=== PATIENT | male | born 1955 | race Caucasian/White ===

== ENCOUNTER 2024-07-25 11:39 | Inpatient (IN) | payer MEDICARE, SELFPAY ==
[2024-07-25] VITALS (12 sets, daily range): BP systolic 132–204; BP diastolic 75–102; PULSE 62–84; RESP 16–20; TEMP 36.4–37.2; O2SAT 93–100; BMI 20.9
--- NOTE | ~2024-07-25 | XR_ITS ---
EXAMINATION: XR chest 1V portable 07/25/2024 11:59 INDICATION: Chest pain PROCEDURE: AP portable chest COMPARISON: No prior studies for comparison. FINDINGS: Heart size normal. No focal pneumonia, edema, pleural effusion or pneumothorax. Left basila r atelectasis. IMPRESSION: 1: NO ACUTE CARDIOPULMONARY DISEASE. Reviewed, dictated and finalized at location A.
--- NOTE | ~2024-07-25 | CT_ITS ---
EXAMINATION: CTA chest abdomen pelvis DATE: 07/25/2024 12:49 CDT INDICATION: Hypertension. Nausea. TECHNIQUE: Computed tomographic angiography (CTA) of the chest, abdomen, and pelvis was performed wit hout and with 100 mL Omnipaque-350 intravenous contrast. The dose-length product was 375.21 mGy-cm. M aximum intensity projection 3D-reconstructions of the aorta and other arteries were constructed by th e technologist on a separate workstation. Automated exposure control and iterative reconstruction debby hnique were employed. COMPARISON: Chest dated 07/25/2024 FINDINGS: CHEST CTA: No evidence for aortic aneurysm or dissection. Heart size normal. There is left atrial enlargement wi th left ventricular hypertrophy. No significant pleural or pericardial effusion. No endobronchial les ions. There are a few patchy areas of groundglass opacification. There is interlobular septal thicken ing. ABDOMEN AND PELVIS CTA: No evidence for aneurysm or dissection. Enlarged prostate gland. The liver, spleen, pancreas, adrenal glands are unremarkable. There is mild-moderate left hydronephrosis. Enlarged prostate gland. Mild b ladder wall thickening. No lymphadenopathy. Gallbladder is present. Nonobstructive bowel gas pattern. Mild thoracic spondylosis. IMPRESSION: 1. No significant vascular abnormality. 2: Mild-moderate left hydronephrosis. No obstructing stone or mass identified. 3: Enlarged prostate gland. Mild bladder wall thickening which may be due to outlet obstruction or l ess likely cystitis. 4.: Interlobular septal thickening with patchy groundglass opacities which may reflect chronic inters titial lung disease, small airway disease or less likely pneumonia. Reviewed, dictated and finalized at location A. IMPRESSION: 1. No significant vascular abnormality. 2: Mild-moderate left hydronephrosis. No obstructing stone or mass identified. 3: Enlarged prostate gland. Mild bladder wall thickening which may be due to o utlet obstruction or less likely cystitis. 4.: Interlobular septal thickening with patchy groundglass opacities which may reflect chronic interstitial lung disease, small airway disease or less likely pneumonia.
--- NOTE | 2024-07-25 11:45 | ECG_ITS ---
Test Date: 2024-07-25 11:43:30 Measurements Intervals [place] Rate: 76 P: 39 MA: 163 QRS: -1 QRSD: 88 T: 164 QT: 450 QTc: 508 Interpretive Statements SINUS RHYTHM WITH SINUS ARRHYTHMIA ST DEVIATION AND MARKED T-WAVE ABNORMALITY, CONSIDER ANTEROLATERAL ISCHEMIA [-0.5+ mV T-WAVE IN I/aVL/V3-V6] No previous ECG available for comparison Electronically Signed On 07-27-2024 14:05:06 CDT by Seferino Ro M.D.
--- OUTSIDE RECORDS SUMMARY | 2024-07-25 11:47 | XMS_ITS | Continuity of Care Document ---
Author Organization [facility] Address [address] [place] [address] Phone Care Team Providers Care Entry Level Sales Consultant Name Role Phone Sanchez Brothers MD Unavailable Unavailable Allergies, Adverse Reactions, Alerts Substance Reaction Status Criticality No Known Allergies Active No Inform ation Medications Medication Instructions Dosage Effective Dates (start - stop) Status Comments Keflex 500 mg capsule take 1 capsule (500MG) by oral route 3 times a day for 7 days - Active Bactroban 2 % topical ointment Apply a small amount to each nostril on clean Qtips BID starting 5 days prior to surgery - Active warfarin 3 mg tablet - Active COREG (unknown strength) Not Available - Active LEVEMIR (unknown strength) Not Available - Active NOVOLOG (unknown strength) inject by subcutaneous route per prescriber's instructions. Insulin dosing requires individualization. Not Available - Active PROZAC (unknown strength) Not Available - Active Procedures Procedure Date POSTOP FOLLOW-UP VISIT POSTOP FOLLOW-UP VISIT POSTOP FOLLOW-UP VISIT POSTOP FOLLOW-UP VISIT ARTHROTOMY , KNEE, W/ EXPLORE, DRAIN, RE MOVE LOOSE/FOREIGN BODY POSTOP FOLLOW-UP VISIT XRAY KNEE, 3 VIEWS CR POSTOP FOLLOW-UP VISIT Office Visit, No Charge POSTOP FOLLOW-UP VISIT KNEE IMMOBOLIZER TOTAL KNEE ARTHROPLASTY OFFICE/OUTPATIENT VISIT, EST XRAY KNEE, 4+ VIEWS OFFICE/OUTPATIENT VISIT, EST XRAY KNEE, 1-2 VIEWS OFFICE/OUTPATIENT VISIT, EST XRAY KNEE, 1-2 VIEWS POSTOP FOLLOW-UP VISIT XRAY KNEE, 1-2 VIEWS POSTOP FOLLOW-UP VISIT XRAY KNEE, 1-2 VIEWS POSTOP FOLLOW-UP VISIT Tibial Fx, Prox Plateau, OpT x Unicondylar, Inc Internal Fixation When Performed OPEN MENISCECTOMY, KNEE, MEDIAL OR LATER AL (ARTHROTOMY) OFFICE/OUTPATIENT VISIT, EST OFFICE/OUTPATIENT VISIT, NEW POSTOP FOLLOW-UP VISIT X-RAY EXAM OF KNEE, 3 POSTOP FOLLOW-UP VISIT TOTAL KNEE ARTHROPLASTY Perio tremayne qual act perform OFFICE/OUTPATIENT VISIT, EST X-RAY EXAM, KNEE, 4 OR MORE Advance Directives Directive Yes / No Effective Date File Name No Information Encounters Encounter Description Practice Location Reason(s) For Visit Diagnoses Date Provider Providers Copied on Encounter [facility], [address] [place] [address], [address], [place] tel:[phone] [facility] post-op right knee (chief complaint) Body mass index (BMI) 27.0-27.9, adultInfectio n of total right knee replacement, subsequent encounter 201 8 Deneen Bradford. [address] [place] [address], [id number], [place]. tel:[phone] Referring Provider: Heavenly Pak, [address] [place], [address] . tel:[phone] [facility], [address] [place] [address], [address], [place] tel:[phone] [facility] post-op right knee (chief complaint) Body mass index (BMI) 27.0-27.9, adultInfectio n of total right knee replacement, subsequent encounter 8 Deneen Bradford. [address] [place], [place], [id number], [place]. tel:[phone] Referring Provider: Heavenly Pak [address] [place], [address] . tel:[phone] [facility], [address] [place] [address], [address], [place] tel:[phone] [facility] post-op right knee (chief complaint) Infection of total right knee replacement, subsequent encounterPres ence of right artificial knee joint 8 Georgiana Johnson. [address] [place], [place], [id number], [place]. tel:[phone] Referring Provider: Heavenly Pak [address] [place], [address] . tel:[phone] [facility], [address] [place] [address], [address], [place] tel:[phone] [facility] post-op right knee (chief complaint) Body mass index (BMI) 27.0-27.9, adultInfect/i nflm reaction due to internal r knee prosth, init 8 Deneen Bradford. [address] [place], [place], [id number], [place]. tel:[phone] Referring Provider: Heavenly Pak [address] [place], [address] . tel:[phone] [facility], [address] [place] [address], [address], [place] tel:[phone] [facility] [place] No Information 0 8 Deneen Bradford. [address] [place], [place], [id number], [place]. tel:[phone] Referring Provider: Heavenly Pak [address] [place], [address] . tel:[phone] [facility], [address] [place] [address], [address], [place] tel:[phone] [facility] post-op right knee (chief complaint) post-op right knee (chief complaint) Aftercare following right knee joint replacement surgeryPresen ce of right artificial knee joint Feb-0 8 Deneen Bradford. [address] [place], [place], [id number], [place]. tel:[phone] [facility], [address] [place] [address], [address], [place] tel:[phone] [facility] post-op right knee (chief complaint) Aftercare following right knee joint replacement surgeryPresen ce of right artificial knee joint Feb-0 - 8 Deneen Bradford. [address] [place], [place], [id number], [place]. tel:[phone] [facility], [address] [place] [address], [address], [place] tel:[phone] [facility] post-op right knee (chief complaint) Aftercare following right knee joint replacement surgeryPresen ce of right artificial knee jointBody mass index (BMI) 27.0-27.9, adult 8 Deneen Bradford. [address] [place], [place], [id number], [place]. tel:[phone] [facility], [address] [place] [address], [address], [place] tel:[phone] [facility] post-op right knee (chief complaint) Aftercare following right knee joint replacement surgeryPresen ce of right artificial knee joint 8 Deneen Bradford. [address] [place], [place], [id number], [place]. tel:[phone] [facility], [address] [place] [address], [address], [place] tel:[phone] [facility] No Information 8 Deneen Swain. [address], [address], [place], [place], [id number], [place]. tel:[phone] [facility], [address] [place] [address], [address], [place] tel:[phone] [facility] No Information 8 Deneen Bradford. [address] [place], [place], [id number], [place]. tel:[phone] [facility], [address] [place] [address], [address], [place] tel:[phone] [facility] No Information 8 Deneen Bradford. [address] [place], [place], [id number], [place]. 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 [address] [place], [place], [id number], [place]. tel:[phone] Referring Provider: Sanchez Cruz, [address] [place] [address] A, [place], [address] . tel:[phone] OFFICE/OUTPA TIENT VISIT, EST [facility], [address] [place] [address], [address], [place] tel:[phone] [facility] right knee pain (chief complaint) Acute pain of right knee 7 Rogelio Lopez. [address] [place] [address], [id number], [place]. tel:[phone] Referring Provider: Sanchez Cruz [address] [facility] [place], [address] . tel:[phone] OFFICE/OUTPA TIENT VISIT, EST [facility], [address] [place], [address], [place] tel:[phone] [facility] right knee pain (chief complaint) Acute pain of right knee 9201 7 Rappe John. [address] [place], [place], [id number], [place]. tel:[phone] Referring Provider: Florencia Riddle [facility] [place] [facility] [address], [place], [address] . tel:[phone] [facility], [address] [place] [address], [address], [place] tel:[phone] [facility] post-op right knee (chief complaint) Closed displaced bicondylar fracture of right tibia with routine healing July- 8-201 7 Rappe John. [address] [place], [place], [id number], [place]. tel:[phone] Referring Provider: Florencia Riddle [facility] [place] [facility] [address], [place], [address] . tel:[phone] [facility], [address] [place] [address], [address], [place] tel:[phone] [facility] post-op right knee (chief complaint) Closed displaced bicondylar fracture of right tibia with routine healing May-2 7-201 7 Rappe John. [address] [place], [place], [id number], [place]. tel:[phone] Referring Provider: Shannan Riddle[address] [facility] [place] [facility] [address], [place], [address] . tel:[phone] [facility], [address] [place] [address], [address], [place] tel:[phone] [facility] post-op right knee (chief complaint) Closed displaced bicondylar fracture of right tibia with routine healing May-1 3-201 7 Rappe John. [address] [place], [place], [id number], [place]. tel:[phone] Referring Provider: Sanchez Cruz, Flore[address] [facility] [place] [facility] [address], [place], [address] . tel:[phone] [facility], [address] [place], [address], [place] tel:[phone] [facility] No Information 0 7 Rappe John. [address] [place], [place], [id number], [place]. tel:[phone] OFFICE/OUTPA TIENT VISIT, [facility], [address] [place], [address], [place] tel:[phone] [facility] right knee pain (chief complaint) Fracture of right tibial plateau, closed, initial encounterRigh t calf pain 0 7 Rappe John. [address] [place], [place], [id number], [place]. tel:[phone] Referring Provider: Florencia Riddle [facility] [place] [facility] [address], [place], [address] . tel:[phone] OFFICE/OUTPA TIENT VISIT, [facility], [address] [place], [address], [place] tel:[phone] [facility] right knee pain (chief complaint) Acute pain of right knee 7 Rappe John. [address] [place], [place], [id number], [place]. tel:[phone] Referring Provider: Florencia Riddle [facility] [address], [place], [address] . tel:[phone] [facility], [address] [place], [address], [place] tel:[phone] [facility] No Information 2 Deneen Bradford. [address] [place], [place], [id number], . tel:[phone] [facility], [address] [place] [address], [facility], tel:[phone] [facility] No Information 2 Deneen Bradford. [address] [place], [place], [id number], . tel:[phone] [facility], [address] [place] [address], [facility], tel:[phone] [facility] No Information 2 Deneen Bradford. [address] [place], [place], [address] [place] [address], . tel:[phone] OFFICE/OUTPA TIENT VISIT, [facility], [address] [place] [address], [facility], tel:[phone] [facility] No Information 2 Deneen Bradford. [address] [place], [place], [id number], . tel:[phone] Family History Family Member Type Diagnosis Age At Onset Problem (finding) Family history of strok e Problem (finding) Family history of Heart disease Problem (finding) Family history of Cance r, unknown Payers Payer name Insurance type Covered green party ID Tino hanley(s) [employer] Gold Choice Medicare MB [id number] Social History Type Description Quantity Date Captured Comments Alcohol Use Details No Caffeine Use Details Unknown Tobacco Use Status No Information Smoking Status Former smoker Non-Smoking Tobacco Use Details : No Details Available : No Details Available Sex Male Vital Signs Date / Time: Height Weight BMI Pulse Rate Blood Pressure Temperature Respiratory Rate Body Surface Area Head Circumference Head Circ. Percentile Wt./August. Percentile BMI percentile Pulse Ox Inhaled Ox 2:07 PM 71.00 in 90.718 kg (200.00 lbs) 27.8 9 kg/m lonnie (2) Chief Complaint And Reason For Visit From encounter dated '08/07/2017 14:00'. post-op right knee (chief complaint). Description: Activity level is: dependent. Status is: improving. Pain level is: 2/10. Pain frequency: occasional. No pain medications. WB status: full. Wound healing. No calf tenderness. No fever/chills. No rehabilitation. No nausea/vomiting. No swelling. Home exercise. Using assistive device. Device: quad cane. Reason For Referral Reason For Referral No Information Plan Of Treatment Date Type Action Status Goal Lifestyle education regardin g diet completed Goal Lifestyle education regardin g diet completed Goal Lifestyle education regardin g diet completed Goal Lifestyle education regardin g diet completed Referral Referred To: KNEE IMMOBOLIZER Ordered: Referrals: KNEE IMMOBOLIZER ordered Referral Ordered: UNILATERAL VENOUS DOPPLER (rule Out Dvt) RT lower leg Appointment date/timeframe: 05/17/2016 ordered Referral Ordered: CT LOWER EXTREMITY W/O DYE RT knee Appointment date/timeframe: 05/14/2016 ordered Referral Ordered: [employer] Document ordered Referral Ordered: [employer] Document ordered Referral Ordered: [employer] Document ordered History Of Present Illness Encounter Date Complaint History Of Prese nt Illness post-op right knee Activity leve l is: dependent. Status is: improving. Pain level is: 2/10. Pain frequency: occasional. No pain medications. WB status: full. Wound healing. No calf tenderness. No fever/chills. No rehabilitation. No nausea/vomiting. No swelling. Home exercise. Using assistive device. Device: quad cane. post-op right knee Activity leve l is: with assistance. Status is: improving. Pain level is: 5/10. Pain medications taken. Medication frequency: as needed. Wound healing. No calf tenderness. No fever/chills. Rehabilitation. No nausea/vomiting. No swelling. Home exercise. Using assistive device. Device: straight cane. post-op right knee Status is: im proving. Pain frequency: intermittent. Pain medications taken. WB status: partial. Wound healing. No calf tenderness. No fever/chills. Rehabilitation. No nausea/vomiting. Swelling. No home exercise. Using assistive device. Device: standard walker. Other: Well healed incision. Other: Well healed incision. post-op right knee Status is: un changed. Pain frequency: constant. Pain medications taken. Medication frequency: as prescribed. WB status: non-weight bearing. Wound not healing. Details: serous drainage, mild. No calf tenderness. No fever/chills. Rehabilitation. No nausea/vomiting. Swelling. No home exercise. Using assistive device. Other: Well healed incision. Other: Well healed incision. post-op right knee Status is: im proving. Pain level is: 6/10. Pain medications taken. Response: good. Medication frequency: less often than prescribed. WB status: full. Wound healing. No calf tenderness. No fever/chills. No rehabilitation. No nausea/vomiting. Swelling. No home exercise. Using assistive device. Device: standard walker. Other: Well healed incision. Other: Well healed incision. post-op right knee Activity sylvester l is: with assistance. Status is: improving. Pain level is: 2/10. Pain frequency: occasional. Pain medications taken. Medications: prescription pain medication. Medication frequency: as needed. WB status: full. Wound healing. No calf tenderness. No fever/chills. No rehabilitation. No nausea/vomiting. Swelling. No home exercise. Using assistive device. Device: brace/wheelchair. post-op right knee Activity sylvester l is: dependent. Work status is: no work/activity. Status is: improving. Pain level is: 5/10. Pain frequency: occasional. Pain medications taken. Medication frequency: as needed. WB status: full. Wound healing. No calf tenderness. No fever/chills. No rehabilitation. No nausea/vomiting. Swelling. Home exercise. Using assistive device. Device: rolling walker. Other: Well healed incision. post-op right knee Activity sylvester l is: with assistance. Pain frequency: occasional. Pain medications taken. Medications: prescription pain medication. WB status: full. Details: bloody. No calf tenderness. No fever/chills. Rehabilitation. No nausea/vomiting. No swelling. Home exercise. Using assistive device. Device: rolling walker. right knee pain Mr Michael Bell is a 61 year old male who complains of right knee pain. He presents with pain on the right side. He rates his current pain as 7/10. right knee pain Mr Michael Bell is a 61 year old male who complains of right knee pain. He presents with pain on the right side. right knee pain Mr Michael Bell is a 60 year old male who complains of right knee pain. He presents with pain on the right side. Patient is using a walker. He rates his current pain as 0/10. post-op right knee Activity leve l is: dependent. Status is: improving. Pain level is: 2/10. Pain medications taken. Medications: prescription pain medication. Medication frequency: as needed. WB status: partial. Wound healing. No calf tenderness. No fever/chills. Rehabilitation. No nausea/vomiting. No swelling. Home exercise. Using assistive device. Device: wheelchair. Other: Well healed incision. post-op right knee Activity leve l is: dependent. Status is: improving. Pain level is: 0/10. No pain medications. WB status: non-weight bearing. Wound healing. No calf tenderness. No fever/chills. No rehabilitation. No nausea/vomiting. Swelling. Home exercise. Using assistive device. Device: wheelchair. Other: Well healed incision. post-op right knee Activity leve l is: dependent. Work status is: no work/activity. Status is: unchanged. Pain level is: 10/10. Pain frequency: constant. Pain medications taken. Response: fair. Medication frequency: as needed. WB status: non-weight bearing. Wound healing. No calf tenderness. No fever/chills. No rehabilitation. No nausea/vomiting. Swelling. No home exercise. Using assistive device. Device: wheelchair. Other: Well healed incision. right knee pain Luciano Rodriguez Jr is a 60 year old male. He presents with pain on the right side. The symptoms occur intermittently. The problem is unchanged. Currently the patient states that the symptoms are mild. He rates his current pain as 3/10. The symptoms are aggravated by HE IS HERE FOR CT RESULT S. right knee pain Luciano Rodriguez Jr is a 60 year old male. He presents with pain on the right side. 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 The symptoms occur constantly. Currently the patient states that the symptoms are severe. The pain is described as aching and sharp. He rates his current pain as 10/10. The symptoms are aggravated by movement. In addition to right knee pain the patient is also experiencing pain. The patient has had a previous x-ray. Patient states he was seen at [facility] and they done x-rays there. Functional Status Date Functional Assessmen t No Information Instructions Date Instruction Additional Infor mation Lifestyle education regarding di et Related to Body mass index (BMI) 27.0-27.9, adult Discussed post op care/precautio ns Elevate as needed Follow exercise program Ice as needed Progress until full ROM Progress until full strength Advance activity as tolerated continue physical therapy Advance activity as tolerated Discussed wound care Discussed post op care/precautio ns Elevate as needed Follow exercise program Ice as needed Progress until full ROM Progress until full strength Lifestyle education regarding di et Related to Body mass index (BMI) 27.0-27.9, adult Limit activity Elevate as needed Elevate as needed Discussed post op care/precautio ns Discussed wound care observe Lifestyle education regarding di et Related to Body mass index (BMI) 27.0-27.9, adult Advance activity as tolerated Discussed wound care Discussed post op care/precautio ns Elevate as needed Follow exercise program Ice as needed Limit activity Progress until full ROM Progress until full strength schedule physical therapy Advance activity as tolerated Discussed wound care Discussed post op care/precautio ns Elevate as needed Follow exercise program Progress until full strength Ice as needed Progress until full ROM Lifestyle education regarding di et Related to Body mass index (BMI) 27.0-27.9, adult Advance activity as tolerated Ice as needed Progress until full ROM Progress until full strength continue physical therapy Discussed wound care Discussed post op care/precautio ns Elevate as needed Follow exercise program Discussed post op care/precautio ns Follow exercise program Progress until full ROM Progress until full strength Discussed wound care Discussed post op care/precautio ns Elevate as needed Follow exercise program Ice as needed Progress until full ROM Progress until full strength Progress until full strength Progress until full ROM Ice as needed Discussed wound care Discussed post op care/precautio ns Elevate as needed Follow exercise program Assessments Type Assessment Date assessment Body mass index (BMI) 27.0-27.9, adult assessment Infection of total r ight knee replacement, subsequent encounter Patient Care Teams Name Effective Dates (start - stop) Status Members No Information
--- OUTSIDE RECORDS SUMMARY | 2024-07-25 11:47 | XMS_ITS | Continuity of Care Document ---
Author Organization [facility] Address [address] [place] [address] Phone Care Team Providers Care Knockout Man Name Role Phone Kimberley Reno, Martin Unavailable Unavailable Advance Directives Directive Yes / No Effective Date File Name No Information Encounters Encounter Description Practice Location Reason(s) For Visit Diagnoses Date Provider Providers Copied on Encounter [facility], [address] [place], [id number] tel:[phone] No Information Kimberley Salazar. [address] [place], [address]. tel:[phone] Family History Family Member Type Diagnosis Age At Onset No Information Payers Payer name Insurance type Covered republican ID Authoriza tion(s) No Information Social History Type Description Quantity Date Captured Comments Sex Male Smoking Status No Information History Of Present Illness Encounter Date Complaint History Of Prese nt Illness No Information Functional Status Date Functional Assessmen t No Information Instructions Date Instruction Additional Infor mation No Information Assessments Type Assessment Date No Information Patient Care Teams Name Effective Dates (start - stop) Status Members No Information
[2024-07-25] MEDS: METOCLOPRAMIDE HCL INJ 10 MG/2 ML VIAL IM (11:58)
[2024-07-25] MEDS: fentaNYL CITRATE INJ (*CRX) 100 MCG/2 ML VIAL IV PUSH (11:58)
[2024-07-25] MEDS: LACTATED RINGERS 1,000 ML 999 ML IV CONT (11:58)
--- NOTE | 2024-07-25 12:00 | ED.CHESTPAIN ---
HPI - Chest Pain General Chief Complaint: Nausea/Vomiting/Diarrhea Stated Complaint: vomiting History of Present Illness HPI narrative: 68-year-old male presenting to the emergency department chief complaint of chest pain, abdominal pain, nausea, vomiting for 2 days. Patient is a terrible historian and EMS/family were not able to get any salient details. Patient states that he has had pain for 2 days and been retching with vomiting for 2 days and then this morning took 8 nitro tablets in 81 mg of aspirin for his chest pain. Reportedly he may have had a syncopal episode but no obvious trauma patient is not sure if this happened. His a history of prior stroke, bladder cancer, hep C, cardiac disease with 2 stents. When asked if he has chest pain or abdominal pain presently he states ?it's all right and then proceeds to grab his abdomen and chest in apparent pain and writhing. Denies any shortness a breath, back pain, fever, chills, trauma or injury. Patient is awake and answering questions and seems to be moving all extremities without any lateralizing deficits. Related Data Home Medications ?Medication ?Instructions ?Recorded ?Confirmed ?Last Taken ?Type amlodipine 10 mg tablet 10 mg PO ONCE 07/25/24 07/25/24 Unknown History aspirin 81 mg capsule 81 mg PO DAILY 07/25/24 07/25/24 Unknown History carvedilol 6.25 mg tablet 6.25 mg PO BID 07/25/24 07/25/24 Unknown History clotrimazole-betamethasone 1 1 applic topical BID 07/25/24 07/25/24 Unknown History %-0.05 % topical cream cyanocobalamin (vitamin B-12) 50 50 mcg PO DAILY 07/25/24 07/25/24 Unknown History mcg tablet (Vitamin B-12) duloxetine 30 mg capsule,delayed 30 mg PO BID 07/25/24 07/25/24 Unknown History release isosorbide mononitrate 30 mg 30 mg PO DAILY 07/25/24 07/25/24 Unknown History tablet,extended release 24 hr levetiracetam 500 mg tablet 500 mg PO BID 07/25/24 07/25/24 Unknown History losartan 25 mg tablet (Cozaar) 25 mg PO DAILY 07/25/24 07/25/24 Unknown History nitroglycerin PO 07/25/24 07/25/24 History pantoprazole 40 mg tablet,delayed 40 mg PO QAM 07/25/24 07/25/24 Unknown History release primidone 50 mg tablet 50 mg PO HS 07/25/24 07/25/24 Unknown History rosuvastatin 20 mg tablet 20 mg PO DAILY 07/25/24 07/25/24 Unknown History tamsulosin 0.4 mg capsule 0.4 mg PO DAILY 07/25/24 07/25/24 Unknown History umeclidinium 62.5 mcg-vilanterol 1 inh inhalation DAILY 07/25/24 07/25/24 Unknown History 25 mcg/actuation powdr for inhalation (Anoro Ellipta) Allergies Allergy/AdvReac Type Severity Reaction Status Date / Time No Known Allergies Allergy Verified 07/25/24 15:23 Review of Systems Review of Systems: As reviewed above in [facility] Social History Social History Smoking status: Former smoker Tobacco type: cigarettes Alcohol intake: former Substance use type: former substance user and marijuana Do You Feel Safe in your Home?: Yes Lack of Transportation: No Lack of Food: Never True Current Housing: I Have Housing Concerned About Future Housing: No Difficulty Paying Gas/Electric Bills: No Difficulty Paying for Meds: No Currently Unemployed: No Education: Never Attended/Kindergarten Only Difficulty w/ Childcare or Family Care: No Spiritual care concerns: No Exam Narrative: GENERAL: In acute distress, writhing, not able to sit still, clutching his chest and abdomen HEAD: [Normocephalic, atraumatic.] EYES: [PERRLA and EOMI.] ENT: Nares clear, no rhinorrhea or epistaxis. Mucous membranes moist. NECK: Supple. CHEST: [Clear to auscultation. No respiratory distress.] Tender in the anterior chest wall HEART: [Regular rate and rhythm]. No murmur heard. [Normal peripheral pulses.] ABDOMEN: [Soft, nondistended], tender in the epigastrium, [No rigidity or guarding] EXTREMITIES: Normal range of motion. [No edema.] SKIN: Warm, dry, no rash. NEURO: [No focal deficits]. Alert and oriented [x3.] Moving all extremities PSYCH: [Normal mood and affect.] Course Vital Signs Vital signs: Vital Signs Temperature 36.4 C 07/25/24 11:35 Pulse Rate 67 07/25/24 11:35 Respiratory Rate 20 07/25/24 11:35 Blood Pressure 204/102 H 07/25/24 11:35 Pulse Oximetry 100 07/25/24 11:35 Oxygen Delivery Room Air 07/25/24 11:35 Temperature 37.2 C 07/25/24 15:20 Pulse Rate 69 07/25/24 16:00 Respiratory Rate 18 07/25/24 15:20 Blood Pressure 155/78 H 07/25/24 15:20 Pulse Oximetry 98 07/25/24 15:20 Oxygen Delivery Room Air 07/25/24 16:00 MDM - Chest Pain MDM Narrative Medical decision making narrative: 68-year-old male with history of prior CVA, bladder cancer, coronary artery disease with 2 cardiac stents, hepatitis-C. Patient presents to the emergency department via EMS with nausea and vomiting for 2 days and chest pain today with a possible syncopal episode. Patient is a terrible historian and difficult to ascertain exactly what happened but he did take 8 tablets of nitroglycerin and 81 mg of aspirin today for chest pain, arrives in acute distress, writhing and not able to sit still clutching his chest and complaining of pain and retching and vomiting. He is markedly hypertensive with a blood pressure 204/102, no tachycardia, tachypnea, fever or hypoxia. He has a tender epigastrium in tender anterior chest wall no overlying skin changes. Moving all extremities without any focal lateralizing deficits or neurological symptoms. He is awake alert oriented. He appears rather uncomfortable not able to sit still for an IV. Intramuscular Reglan was administered an IV was established. EKG was obtained immediately and shows what appears to be deeply inverted symmetric T-waves in the lateral leads and biphasic T-waves in V2 and V3 consistent with a Wellens criteria and potentially critical stenosis. I immediately called and spoke to the on-call drier Dr. Taylor. We discussed patient's symptomatology, EKG and historical elements. At this point we are going to obtain a CT angiography of his chest abdomen pelvis to rule out any other causes such as aortic aneurysm or dissection, pseudoaneurysm or any other acute emergency and then patient will be needing a cardiac catheterization if this is unremarkable. Patient was provided 100 mcg of fentanyl for pain control, Reglan for nausea control and bedside chest x-ray was reviewed showing no acute cardiopulmonary process. CT was called and patient was taken emergently for CT angiography. I independently reviewed patient's CT angiography and did not show any signs of ascending dissection or aneurysm. CT read by radiology shows no acute vascular insults with her some, tear and moderate left-sided hydronephrosis but no stone or mass, enlarged prostate gland with bladder wall thickening with possible cystitis. In her level septal thickening consistent with chronic interstitial lung disease versus small airway disease versus less likely pneumonia. Chest x-ray shows no acute cardiopulmonary process. Patient's laboratory studies showed no leukocytosis, hemoglobin of 11.7 with no baseline to compare to. Normal platelet count. Electrolytes are unremarkable. Coagulation panel unremarkable. He does have a creatinine 1.43 which is unclear if his chronic kidney your new acute kidney injury. Troponin is largely elevated 0.462. I did speak once again to Interventional Cardiology who recommends initiation of a heparin infusion but after their evaluation the patient at bedside did not think he needs emergent cardiac catheterization will plan for medical laboratory scientist tomorrow morning unless he exhibits recurrence of his pain or other clinical decline. Patient on my re-evaluation is resting comfortably after the Reglan and fentanyl, no longer retching or nauseous and no longer having any pain. His vital signs did show improvement in his blood pressure 155/78 before any initiation of antihypertensive therapy so likely pain mediated on chronic hypertension. P.r.n. hydralazine was ordered. Heparin drip and bolus ordered. Spoke to the hospitalist team currently being covered by the midlevel provider Mikki who accepted the patient to the IMU for continued evaluation and treatment. Cardiology on consult and has already evaluated the patient. Medical Records Data Attestation: I reviewed the patient's medical records. Lab Data Attestation: I reviewed the patient's lab results. 07/25/24 15:25 07/25/24 12:59 Labs: Lab Results 07/25/24 Range/Units 12:59 WBC 8.7 (4.5-10.0) K/mm3 RBC 4.28 L (4.6-6.20) M/mm3 Hgb 11.7 L (14.0-18.0) g/dL Hct 37.2 L (42.0-52.0) % MCV 86.9 (80-100) fl MCH 27.3 (26-34) pg MCHC 31.5 L (32-36) g/dl RDW 18.2 H (11.5-14.5) % Plt Count 204 (150-375) k/mm3 MPV 10.4 (7.4-10.4) fl Immature Gran % (Auto) 0.3 (0-0.5) % Neut % (Auto) 76.3 H (45.5-73.1) % Lymph % (Auto) 12.7 L (18.3-44.2) % Karnes % (Auto) 9.2 H (2.6-8.5) % Eos % (Auto) 0.8 (0-4.4) % Baso % (Auto) 0.7 (0.2-1.2) % Lymph # (Auto) 1.11 (0.9-3.2) K/mm3 Karnes # (Auto) 0.8 H (0.1-0.6) K/mm3 Eos # (Auto) 0.1 (0-0.3) K/mm3 Baso # (Auto) 0.1 (0.0-0.1) K/mm3 Abs Immat Gran (auto) 0.03 (0.00-0.031) K/mm3 Absolute Neuts (auto) 6.7 (1.3-6.7) K/mm3 Absolute Nucleated RBC 0.000 (0.0-0.012) K/mm3 Nucleated RBC % 0.0 (0.0-0.2) % PT 14.0 (11.1-14.7) Seconds INR 1.0 APTT 30.6 (22.3-36.8) Seconds Sodium 134 L (137-145) mmol/L Potassium 3.5 (3.4-5.0) mmol/L Chloride 102 (98-107) mmol/L Carbon Dioxide 20 L (22-30) mmol/L Anion Gap 12 (4-12) mmol/L BUN 37 H (9-20) mg/dL Creatinine 1.42 H (0.7-1.3) mg/dL Estim Creat Clear Calc 43 ml/min Estimated GFR 49 L (59 - ) Glucose 107 (65-110) mg/dL Calcium 9.0 (8.4-10.2) mg/dL Total Bilirubin 1.1 (0.2-1.3) mg/dL AST 39 (17-59) U/L ALT 21 (6-50) U/L Alkaline Phosphatase 77 (38-126) U/L Troponin I 0.462 H* (0.000-0.034) ng/mL Total Protein 7.0 (6.3-8.2) g/dL Albumin 4.4 (3.5-5.1) g/dL Lipase 38 (23-300) U/L Imaging Data Attestation: I personally reviewed and interpreted this imaging study as follows: My impression: Impressions Chest X-Ray 07/25/24 12:02 IMPRESSION: 1: NO ACUTE CARDIOPULMONARY DISEASE. Chest/Abdomen/Pelvis CTA 07/25/24 12:49 IMPRESSION: 1. No significant vascular abnormality. 2: Mild-moderate left hydronephrosis. No obstructing stone or mass identified. 3: Enlarged prostate gland. Mild bladder wall thickening which may be due to outlet obstruction or less likely cystitis. 4.: Interlobular septal thickening with patchy groundglass opacities which may reflect chronic interstitial lung disease, small airway disease or less likely pneumonia. ECG Data EKG #1: Attestation: I personally reviewed and interpreted this ECG as follows: ECG completion date: 07/25/24 ECG completion time: 11:43 Prior ECG tracings: not available for review Interpretation: Regular rate of 76 beats per minute, regular axis, QTC 480, NC 163, QRS [address] segment elevations or depressions but there are symmetric deeply inverted T-waves in the lateral leads V4 V5 and V6 with biphasic T-waves in leads V2 and V3. Consistent with Wellens criteria. Final interpretation sinus rhythm with suspected anterolateral ischemic changes. Critical Care Time Critical Care Time Critical Care Time: Yes Total Critical Care Time: 75 Discharge Plan Discharge Clinical Impression: NSTEMI (non-ST elevated myocardial infarction), Chest pain, Hypertensive urgency, MARQUEZ (acute kidney injury) Patient Disposition: Still a Patient Condition: Stable
--- NOTE | 2024-07-25 12:48 | PM.CNCAR ---
Assessment and Plan Assessment and plan (1) Chest pain: Code(s): R07.9 - Chest pain, unspecified Status: Acute (2) Hypertensive urgency: Code(s): I16.0 - Hypertensive urgency Status: Acute Plan Problem list: Chest pain with EKG showing sinus rhythm, ST depressions, deep T-wave inversions in anterolateral leads suggestive of anterolateral ischemia Abdominal pain, nausea, emesis Hypertension-poorly controlled CAD status post 2 stents in the past History of bladder cancer History of CVA Plan: -deep T-wave inversions in the anterolateral leads are concerning for acute ischemia in the presence of chest pain; other differential diagnosis include LVH, LV aneurysm, CVA. However patient now has relief of chest pain and is resting after getting metoclopramide in the ER which suggest GI etiology could be likely. Will plan for further ischemic evaluation based on any change in patient's clinical symptoms, results of troponin, CTA chest, and echo -check troponins. If troponin is elevated, start heparin drip -r/o aortic dissection prior to starting any anticoagulation -obtain TTE to evaluate LVEF and any regional wall motion abnormalities -CTA to rule out aortic dissection, PE -aspirin 81 mg daily -atorvastatin 40 mg daily -check and replace electrolytes to keep K greater than 4 and Mg greater than 2 -patient is being admitted to IMU to hospitalist service. Workup for GI symptoms per primary team Our recommendations were discussed with ER physician. Cardiology will continue to follow History of Present Illness History of Present Illness Consult date/time: 07/25/24 12:48 Reason For Visit: vomiting Narrative: 68-year-old male with history of CAD status post 2 stents, bladder cancer, stroke, hepatitis-C presents with chief complaints of chest pain and emesis. Patient lives in his sister's house and is accompanied by her today. Patient's sister provides most of the history as patient is a poor historian. Patient has been having chest pain, epigastric pain, nausea, and emesis for 2 days. Per patient's sister he starts having chest pain/red change followed by emesis. This morning patient took 8 tablets of nitro and 81 mg of aspirin for chest pain with no relief of pain and this prompted him to present to the ER. Patient thinks he may have had a syncopal episode this morning but he is not sure. No obvious trauma. No shortness a breath, palpitations, dizziness, lightheadedness, orthopnea, PND, recent weight gain. EKG shows sinus rhythm with ST depressions, deep T-wave inversions in anterolateral leads. Cardiology is consulted for further recommendations. Workup: EKG: Sinus rhythm, ST depressions, marked T-wave inversions in anterolateral leads Chest x-ray: No acute cardiopulmonary disease CTA chest: No PE or aortic dissection he Review of Systems Cardiovascular: Comments: As mentioned in HPI Respiratory: Comments: As mentioned in the HPI Meds Home Medications and Allergies Allergies Allergy/AdvReac Type Severity Reaction Status Date / Time No Known Allergies Allergy Verified 07/25/24 11:50 Vital Signs Vital Signs - 24 hr 07/25/24 11:35 07/25/24 12:27 Temperature 36.4 C Pulse Rate 67 80 Respiratory Rate 20 19 Blood Pressure 204/102 H 189/91 H Pulse Oximetry 100 100 Oxygen Delivery Room Air Exam Narrative: General: Alert oriented x3, no acute distress Neck: Supple, no JVD Chest: Bilaterally clear to auscultation, no rales or rhonchi Cardiac: S1, S2 +, regular rate, regular rhythm, no murmurs or rubs Extremities: No pedal edema, no skin rash Neurologic: Alert and oriented x3, no focal neurological deficits Results Labs and Meds Lab results: Patient Weight 07/25/24 23:59 Weight 68.2 kg
[2024-07-25 13:07] LABS: Basophils Absolute Auto 0.1 K/mm3 (0.0-0.1); Basophils Percent Auto 0.7 % (0.2-1.2); Eosinophils Absolute Auto 0.1 K/mm3 (0-0.3); Eosinophils Percent Auto 0.8 % (0-4.4); Hematocrit 37.2 % (42.0-52.0); Hemoglobin 11.7 g/dL (14.0-18.0); Immature Granulocyte Absolute 0.03 K/mm3 (0.00-0.031); Immature Granulocyte Percent A 0.3 % (0-0.5); Lymphocytes Absolute Auto 1.11 K/mm3 (0.9-3.2); Lymphocytes Percent Auto 12.7 % (18.3-44.2); Mean Corpuscular HGB Conc 31.5 g/dl (32-36); Mean Corpuscular Hemoglobin 27.3 pg (26-34); Mean Corpuscular Volume 86.9 fl (80-100); Mean Platelet Volume 10.4 fl (7.4-10.4); Monocytes Absolute Auto 0.8 K/mm3 (0.1-0.6); Monocytes Percent Auto 9.2 % (2.6-8.5); Neutrophils Absolute Auto 6.7 K/mm3 (1.3-6.7); Neutrophils Percent Auto 76.3 % (45.5-73.1); Platelet Count Result 204 k/mm3 (150-375); Red Blood Count 4.28 M/mm3 (4.6-6.20); Red Cell Distribution Width 18.2 % (11.5-14.5); White Blood Count 8.7 K/mm3 (4.5-10.0)
[2024-07-25 13:22] LABS: Alanine Aminotransferase 21 U/L (6-50); Albumin Level 4.4 g/dL (3.5-5.1); Alkaline Phosphatase 77 U/L (38-126); Anion Gap 12 mmol/L (4-12); Aspartate Amino Transferase 39 U/L (17-59); Bilirubin,Total 1.1 mg/dL (0.2-1.3); Blood Urea Nitrogen 37 mg/dL (9-20); Carbon Dioxide 20 mmol/L (22-30); Chloride 102 mmol/L (98-107); Estimated CRCL calculation 43 ml/min; Estimated Glomerular Filt Rate 49; Glucose 107 mg/dL (65-110); Lipase 38 U/L (23-300); Potassium 3.5 mmol/L (3.4-5.0); Sodium 134 mmol/L (137-145)
[2024-07-25 13:23] LABS: Partial Thromboplastin Time 30.6 Seconds (22.3-36.8)
[2024-07-25 13:38] LABS: Troponin I 0.462 ng/mL (0.000-0.034)
[2024-07-25] MEDS: HEPARIN SOD/D5W 100 UNITS/ML 25,000 UNITS/250 ML BAG 8 UNITS IV CONT (14:13)
[2024-07-25] MEDS: HEPARIN SODIUM 5,000 UNITS/ML VIAL 4000 UNITS IV PUSH ×2 (14:14→20:55)
--- NOTE | 2024-07-25 14:47 | P.HP_ITS ---
H&P: HPI History of Present Illness Date/Time: 07/25/24 14:47 Chief Complaint: Chest pain Narrative: 68-year-old male presents the hospital with severe chest pain. Patient states that he took 9 nitro at home and believes he passed out. When he woke up he still had chest pain side presents to the hospital. Patient is of extremely poor historian with short-term memory issues due to strokes. HPI gathered from chart review. Current to the chart the patient had chest pain today and took 829 nitros for his chest pain with no relief, he states that he may pass out. When he woke up he still had chest pain so he presented to the hospital. According to the chart the patient also complained of nausea and vomiting and not eating for the last few days. Patient denies fevers chills. On bedside exam patient denies chest pain. Patient's lab work shows anemia 11.7, sodium of 134, carbon dioxide of 11, BUN of 37, creatinine of 1.42 unknown baseline, GFR 49, baseline troponin of 0.462. CT shows no acute findings with Enlarged prostate gland. Mild bladder wall thickening which may be due to outlet obstruction and Interlobular septal thickening with patchy groundglass opacities which may reflect chronic interstitial lung disease, small airway disease or less likely pneumonia. EKG shows sinus rhythm with sinus arrhythmia and abnormal T-waves. QTC 508. In the ED the patient was given aspirin and started on heparin drip and Cardiology was consulted, likely cardiac catheterization tomorrow morning. Review of Systems Review of Systems: 12 systems were reviewed and are negativ e except for as per HPI. [facility] Social History Social History Smoking status: Former smoker Tobacco type: cigarettes Alcohol intake: former Substance use type: former substance user and marijuana Do You Feel Safe in your Home?: Yes Lack of Transportation: No Lack of Food: Never True Current Housing: I Have Housing Concerned About Future Housing: No Difficulty Paying Gas/Electric Bills: No Difficulty Paying for Meds: No Currently Unemployed: No Education: Never Attended/Kindergarten Only Difficulty w/ Childcare or Family Care: No Spiritual care concerns: No Meds Home Medications and Allergies Home Medications ?Medication ?Instructions ?Recorded ?Confirmed ?Type amlodipine 10 mg tablet 10 mg PO ONCE 07/25/24 07/25/24 History aspirin 81 mg capsule 81 mg PO DAILY 07/25/24 07/25/24 History carvedilol 6.25 mg tablet 6.25 mg PO BID 07/25/24 07/25/24 History clotrimazole-betamethasone 1 1 applic topical BID 07/25/24 07/25/24 History %-0.05 % topical cream cyanocobalamin (vitamin B-12) 50 50 mcg PO DAILY 07/25/24 07/25/24 History mcg tablet (Vitamin B-12) duloxetine 30 mg capsule,delayed 30 mg PO BID 07/25/24 07/25/24 History release isosorbide mononitrate 30 mg 30 mg PO DAILY 07/25/24 07/25/24 History tablet,extended release 24 hr levetiracetam 500 mg tablet 500 mg PO BID 07/25/24 07/25/24 History losartan 25 mg tablet (Cozaar) 25 mg PO DAILY 07/25/24 07/25/24 History nitroglycerin 0.4 mg PO TID PRN chest pain 07/25/24 07/25/24 History pantoprazole 40 mg tablet,delayed 40 mg PO QAM 07/25/24 07/25/24 History release primidone 50 mg tablet 50 mg PO HS 07/25/24 07/25/24 History rosuvastatin 20 mg tablet 20 mg PO DAILY 07/25/24 07/25/24 History tamsulosin 0.4 mg capsule 0.4 mg PO DAILY 07/25/24 07/25/24 History umeclidinium 62.5 mcg-vilanterol 1 inh inhalation DAILY 07/25/24 07/25/24 History 25 mcg/actuation powdr for inhalation (Anoro Ellipta) Allergies Allergy/AdvReac Type Severity Reaction Status Date / Time No Known Allergies Allergy Verified 07/25/24 15:23 Vital Signs Vital Signs - 24 hr 07/25/24 11:35 07/25/24 12:27 07/25/24 12:45 Temperature 97.6 F Pulse Rate 67 80 78 Respiratory Rate 20 19 19 Blood Pressure 204/102 H 189/91 H 156/83 H Pulse Oximetry 100 100 94 Oxygen Delivery Room Air 07/25/24 13:30 07/25/24 14:00 Temperature Pulse Rate 62 78 Respiratory Rate 19 16 Blood Pressure 159/75 H 164/77 H Pulse Oximetry 97 97 Oxygen Delivery Exam Narrative: General: Older than stated a HEENT: normocephalic, atraumatic. Mucous membranes moist. EOMI, PERRLA, bilateral sclera anicteric, no conjunctival injection. Neck supple without JVD, lymphadenopathy, or bruit. Respiratory: Wheezing to ascultation bilaterally. Cardiovascular: Regular rate and rhythm, normal S1-S2 upon ascultation. No murmurs, rubs, or clicks. PMI is nondisplaced, capillary refill less than 3 second. Abdomen: Soft, round, no pulsatile masses, nondistended and nontender. No rebound, no guarding. No CVA tenderness, no hepatosplenomegaly. Bowel sounds present to all four quadrants. No high pitch or tinkling sounds, resonant to percussion. Extremities: No cyanosis, clubbing, or edema present. Pulses are palpable 2/2. Active ROM to all four extremities. Neuro: Alert and orientated x 4. PERRLA. Cranial nerves 2-12 intact without focal deficit. Skin: Warm, dry, and intact, without rash, erythema, or lesion. Psych: pleasant, cooperative, normal speech, normal affect, no hallucinations, no dysarthia H&P: Results Labs Labs: Short CBC 07/25/24 Range/Units 12:59 WBC 8.7 (4.5-10.0) K/mm3 Hgb 11.7 L (14.0-18.0) g/dL Hct 37.2 L (42.0-52.0) % Plt Count 204 (150-375) k/mm3 BMP 07/25/24 12:59 Sodium 134 L Potassium 3.5 Chloride 102 Carbon Dioxide 20 L BUN 37 H Creatinine 1.42 H Glucose 107 Calcium 9.0 Cardiac Enzymes 07/25/24 Range/Units 12:59 Troponin I 0.462 H* (0.000-0.034) ng/mL Liver Function 07/25/24 Range/Units 12:59 Total Bilirubin 1.1 (0.2-1.3) mg/dL AST 39 (17-59) U/L ALT 21 (6-50) U/L Alkaline Phosphatase 77 (38-126) U/L Albumin 4.4 (3.5-5.1) g/dL Assessment and Plan Assessment and plan (1) NSTEMI (non-ST elevated myocardial infarction): Code(s): I21.4 - Non-ST elevation (NSTEMI) myocardial infarction Status: Acute Assessment and Plan: Cardiology consulted Plan for laborer pipeline tomorrow Heparin per protocol Nitro for chest pain Echocardiogram pending (2) Hypertensive urgency: Code(s): I16.0 - Hypertensive urgency Status: Acute Assessment and Plan: Hydralazine p.r.n. Continue home antihypertensives (3) BPH (benign prostatic hyperplasia): Code(s): N40.0 - Benign prostatic hyperplasia without lower urinary tract symptoms Status: Acute Assessment and Plan: Bladder distension seen on CT Continue home Flomax Add Proscar (4) MARQUEZ (acute kidney injury): Code(s): N17.9 - Acute kidney failure, unspecified Status: Acute Assessment and Plan: Unknown baseline Repeat BMP in the morning (5) Vomiting: Code(s): R11.10 - Vomiting, unspecified Status: Acute Assessment and Plan: Prolonged QTC Avoid prolonging agents Tigan for nausea (6) Seizures: Code(s): R56.9 - Unspecified convulsions Status: Acute Assessment and Plan: Continue home Keppra and primidone Quality VTE Prophylaxis VTE prophylaxis: mechanical ordered and pharmacologic ordered Hospitalist MIPS Advance Care Plan I have confirmed that the patient's Advanced Care Plan is present, code status is documented, or surrogate decision maker is listed in patient medical record.: Yes Medication Reconciliation I have utilized all available resources to obtain, update and review the patients current medications (includes all prescriptions, OTC, herbals, cannabis, and nutritional supplements).: Yes
[2024-07-25 15:30] LABS: Basophils Percent Auto 0.3 % (0.2-1.2); Eosinophils Percent Auto 0.4 % (0-4.4); Hematocrit 39.4 % (42.0-52.0); Hemoglobin 12.5 g/dL (14.0-18.0); Immature Granulocyte Absolute 0.02 K/mm3 (0.00-0.031); Immature Granulocyte Percent A 0.2 % (0-0.5); Lymphocytes Absolute Auto 1.41 K/mm3 (0.9-3.2); Lymphocytes Percent Auto 14.2 % (18.3-44.2); Mean Corpuscular HGB Conc 31.7 g/dl (32-36); Mean Corpuscular Hemoglobin 27.2 pg (26-34); Mean Corpuscular Volume 85.7 fl (80-100); Mean Platelet Volume 10.4 fl (7.4-10.4); Monocytes Absolute Auto 0.7 K/mm3 (0.1-0.6); Monocytes Percent Auto 7.4 % (2.6-8.5); Neutrophils Absolute Auto 7.7 K/mm3 (1.3-6.7); Neutrophils Percent Auto 77.5 % (45.5-73.1); Platelet Count Result 236 k/mm3 (150-375); Red Cell Distribution Width 18.3 % (11.5-14.5); White Blood Count 9.9 K/mm3 (4.5-10.0)
[2024-07-25 15:40] LABS: Cholesterol 163 mg/dL (0-200); HDL Direct 59 mg/dL; Triglycerides 85 mg/dL (<150)
[2024-07-25 15:48] LABS: INR 1.1; Prothrombin Time 14.7 Seconds (11.1-14.7)
[2024-07-25 15:50] LABS: LDL Cholesterol Direct 73 mg/dL
--- NOTE | 2024-07-25 15:53 | ADMGEN ---
This patient, Luciano Rodriguez, was admitted to IMU Room 201-01 at 1507. Patient/family oriented to hospital policies and general routines including ID bracelet, bed and alarms, visiting hours, pain management, procedures, bathroom and other care routines, personal items, smoking policy, room service/diet, and visiting hours. Information on how to activate the Rapid Response Team has been discussed. Patient/Family are encouraged to report perceived risks to care and to ask questions if they do not understand what they are told or what they should do.
--- NOTE | 2024-07-25 16:04 | ADMGEN ---
This patient, Luciano Rodriguez, was admitted to IMU Room 201-01. Patient/family oriented to hospital policies and general routines including ID bracelet, bed and alarms, visiting hours, pain management, procedures, bathroom and other care routines, personal items, smoking policy, room service/diet, and visiting hours. Information on how to activate the Rapid Response Team has been discussed. Patient/Family are encouraged to report perceived risks to care and to ask questions if they do not understand what they are told or what they should do. Head to toe assessment completed. Pt is A&O 3. Unable to give information on PMH or current medications. Pt states his daugher has his medication bottles. Unable to complete assessment will await daughter to complete. Bed in low and locked position. Call light in reach with bed alarm on. Will continue to monitor. Scott Angeles RN
[2024-07-25 16:09] LABS: Troponin I 0.712 ng/mL (0.000-0.034)
--- NOTE | 2024-07-25 17:07 | ECG_ITS ---
Test Date: 2024-07-25 17:28:00 Measurements Intervals [place] Rate: 76 P: 92 FL: 158 QRS: -20 QRSD: 82 T: 133 QT: 444 QTc: 500 Interpretive Statements SINUS RHYTHM ST DEVIATION AND MARKED T-WAVE ABNORMALITY, CONSIDER ANTEROLATERAL ISCHEMIA [-0.5+ mV T WAVE IN I/aVL/V3-V6] Compared to ECG 07/25/2024 11:43:30 T-wave abnormality still present Possible ischemia still present Electronically Signed On 07-27-2024 14:10:23 CDT by Seferino Ro M.D.
[2024-07-25] MEDS: hydrALAZINE HCL 20 MG/ML VIAL 10 MG IV PUSH (18:51)
[2024-07-25 20:42] LABS: Prothrombin Time 13.9 Seconds (11.1-14.7)
[2024-07-25 20:43] LABS: Partial Thromboplastin Time 44.7 Seconds (22.3-36.8)
[2024-07-26] VITALS (27 sets, daily range): BP systolic 96–130; BP diastolic 55–89; PULSE 52–95; RESP 13–20; TEMP 36.7–36.9; O2SAT 91–100
--- NOTE | 2024-07-26 | ECHO_ITS ---
Patient Info Name: Luciano Rodriguez Age: 68 years : 1955 Gender: Male Ht: 70 in Wt: 146 lbs BSA: 1.80 m2 HR: 63 bpm BP: 112 / 75 mmHg Heart Rhythm: Sinus Rhythm Technical Quality: Good Exam Date: 07/26/2024 9:37 AM Exam Location: Echo Lab Patient Status: Inpatient Admit Date: 07/25/2024 Staff Ordering Physician: Marla Taylor MD (neha/kaitlyn) [employer] Operator: Arlet Dasilva RDCS Attending Provider: Pam Bliss MD Exam Type: CA echo doppler color flow Study Info Indications R07.9 - Chest pain, unspecified Complete two-dimensional, color flow and Doppler transthoracic echocardiogram is performed. Summary 1. Complete two-dimensional, color flow and Doppler transthoracic echocardiogram is performed. 2. The left ventricle is normal in size and systolic function. The left ventricular ejection fraction is visually estimated to be 60-65%. There is grade 2 diastolic dysfunction. 3. The right ventricle is normal in size and systolic function. 4. The left atrium is moderately dilated. 5. The aortic valve is trileaflet and sclerotic but opens well. There is mild aortic regurgitation. 6. Normal inferior vena cava with >50% collapse upon inspiration consistent with normal right atrial pressure, 3 mmHg. Left Ventricle The left ventricle is normal in size and systolic function. The left ventricular ejection fraction is visually estimated to be 60-65%. There is grade 2 diastolic dysfunction. Right Ventricle The right ventricle is normal in size and systolic function. Left Atria The left atrium is moderately dilated. Right Atria The right atrium is normal size. Atrial Septum The atrial septum is normal. Aortic Valve The aortic valve is trileaflet and sclerotic but opens well. There is mild aortic regurgitation. Pulmonic Valve The pulmonic valve is not well visualized. There is no color Doppler evidence of pulmonic valve regurgitation. Mitral Valve The mitral valve leaflets are thickened but opens well. There is trace mitral regurgitation. Tricuspid Valve The tricuspid valve is grossly normal. There is trace tricuspid regurgitation. Pericardium/Pleural Pericardium is normal in appearance with no evidence for significant pericardial effusion. Inferior Vena Cava Normal inferior vena cava with >50% collapse upon inspiration consistent with normal right atrial pressure, 3 mmHg. Normal inferior vena cava with >50% collapse upon inspiration consistent with normal right atrial pressure, 3 mmHg. Aorta The aortic root at the level of the sinus of Valsalva measures 3.0 cm in diameter. Left Ventricular Outflow Tract Name Value Normal LVOT 2D LVOT Diameter 2.0 cm LVOT Doppler LVOT Peak Gradient 6 mmHg LVOT Mean Gradient 3 mmHg LVOT VTI 23 cm LVOT VTI/AV VTI Ratio 0.9 LVOT Stroke Volume 73 ml LVOT CO 5.4 l/min LVOT CI 3.0 l/min/m2 Pulmonic Valve Name Value Normal RVOT Doppler RVOT Peak Gradient 4 mmHg PV Doppler PV Peak Gradient 6 mmHg Mitral Valve Name Value Normal MV Doppler MV Decel [place] 264 cm/s2 MV PHT 68 ms MV Area (PHT) 3.2 cm2 4.0-5.0 MV Diastolic Function MV E Peak Velocity 62 cm/s MV A Peak Velocity 68 cm/s MV E/A 0.9 MV Decel Time 236 ms MV Annular TDI MV E/e' (Septal) 13.9 <=8.0 MV E/e' (Lateral) 11.9 <=8.0 MV E/e' (Average) 12.9 Tricuspid Valve Name Value Normal TV Regurgitation Doppler TR Peak Velocity 237 cm/s TR Peak Gradient 22 mmHg Estimated PAP/RSVP RA Pressure 3 mmHg <=5 PA Systolic Pressure 25 mmHg <36 RV Systolic Pressure 25 mmHg <36 Aorta Name Value Normal Ascending Aorta Ao Root Diameter (MM) 2.7 cm Ao Root Diam Index (MM) 1.5 cm/m2 Aortic Valve Name Value Normal AV Doppler AV Peak Velocity 137 cm/s AV Peak Gradient 7 mmHg AV Mean Gradient 4 mmHg AV VTI 25 cm AV Area (Cont Eq VTI) 3.0 cm2 >=3.0 AV Area (Cont Eq Beny) 3.0 cm2 AV Regurgitation 2D LVOT Area 3.2 cm2 AV Regurgitation Doppler AR Decel Time 1,807 ms AR Decel Vernon 232 cm/s2 AR PHT 524 ms Ventricles Name Value Normal LV Dimensions 2D/MM IVS Diastolic Thickness (2D) 0.9 cm 0.6-1.0 LVID Diastole (2D) 4.3 cm 4.2-5.8 LVIW Diastolic Thickness (2D) 0.9 cm 0.6-1.0 LVID Systole (2D) 3.0 cm 2.5-4.0 LVOT Diameter 2.0 cm LV Mass (2D Cubed) 117.71 g 88.00-224.00 LV Mass Index (2D Cubed) 65 g/m2 49-115 Relative Wall Thickness (2D) 0.42 LV Fractional Shortening/Ejection Fraction 2D/MM LV Fractional Shortening (2D) 30 % 25-43 LV EF (2D Teicholz) 57 % 52-72 LV Diastolic Volume (4C MOD) 83 ml LV EF (4C MOD) 69 % LV Diastolic Volume (2C MOD) 89 ml LV EF (2C MOD) 56 % LV Diastolic Volume (BP MOD) 86 ml 62-150 LV Diastolic Volume Index (BP MOD) 48 ml/m2 34-74 LV Systolic Volume (BP MOD) 33 ml 21-61 LV Systolic Volume Index (BP MOD) 18 ml/m2 11-31 LV EF (BP MOD) 62 % 52-72 LV Diastolic Length (4C) 8.4 cm LV Systolic Length (4C) 6.7 cm LV Stroke Volume (4C MOD) 57 ml Atria Name Value Normal LA Dimensions LA Dimension (MM) 4.2 cm 3.0-4.1 LA Volume (4C A-L) 63 ml LA Volume (BP A-L) 75 ml RA Dimensions RA Area (4C) 14.5 cm2 <=18.0 Report Signatures
[2024-07-26] MEDS: levETIRAcetam 500 MG TABLET PO ×2 (01:59→09:26)
[2024-07-26] MEDS: PRIMIDONE 50 MG TABLET PO (01:59)
[2024-07-26 03:01] LABS: Basophils Absolute Auto 0.1 K/mm3 (0.0-0.1); Basophils Percent Auto 0.8 % (0.2-1.2); Eosinophils Percent Auto 0.3 % (0-4.4); Hematocrit 38.9 % (42.0-52.0); Hemoglobin 12.3 g/dL (14.0-18.0); Immature Granulocyte Absolute 0.02 K/mm3 (0.00-0.031); Immature Granulocyte Percent A 0.3 % (0-0.5); Lymphocytes Absolute Auto 0.91 K/mm3 (0.9-3.2); Lymphocytes Percent Auto 14.5 % (18.3-44.2); Mean Corpuscular HGB Conc 31.6 g/dl (32-36); Mean Corpuscular Hemoglobin 27.5 pg (26-34); Mean Platelet Volume 10.5 fl (7.4-10.4); Monocytes Absolute Auto 0.6 K/mm3 (0.1-0.6); Monocytes Percent Auto 9.4 % (2.6-8.5); Neutrophils Absolute Auto 4.7 K/mm3 (1.3-6.7); Neutrophils Percent Auto 74.7 % (45.5-73.1); Platelet Count Result 199 k/mm3 (150-375); Red Blood Count 4.47 M/mm3 (4.6-6.20); Red Cell Distribution Width 18.3 % (11.5-14.5); White Blood Count 6.3 K/mm3 (4.5-10.0)
[2024-07-26 03:11] LABS: Anion Gap 14 mmol/L (4-12); Blood Urea Nitrogen 27 mg/dL (9-20); Calcium 9.1 mg/dL (8.4-10.2); Carbon Dioxide 21 mmol/L (22-30); Chloride 104 mmol/L (98-107); Estimated CRCL calculation 53 ml/min; Estimated Glomerular Filt Rate > 60; Glucose 121 mg/dL (65-110); Potassium 3.3 mmol/L (3.4-5.0); Sodium 139 mmol/L (137-145)
[2024-07-26 03:20] LABS: Partial Thromboplastin Time 85.7 Seconds (22.3-36.8)
--- NOTE | 2024-07-26 08:56 | ECG_ITS ---
Test Date: 2024-07-26 09:10:33 Measurements Intervals [place] Rate: 69 P: 95 IA: 162 QRS: -21 QRSD: 98 T: 151 QT: 469 QTc: 504 Interpretive Statements SINUS RHYTHM BORDERLINE LEFT AXIS DEVIATION [QRS AXIS < -20] ST DEVIATION AND MARKED T-WAVE ABNORMALITY, CONSIDER ANTEROLATERAL ISCHEMIA [-0.5+ mV T-WAVE IN I/aVL/V3-V6] Compared to ECG 07/25/2024 17:28:00 No significant changes Electronically Signed On 07-27-2024 14:33:06 CDT by Seferino Ro M.D.
[2024-07-26] MEDS: FINASTERIDE 5 MG TABLET PO (09:26)
[2024-07-26] MEDS: DULoxetine HCL 30 MG CAPSULE.DR PO (09:26)
[2024-07-26] MEDS: ROSUVASTATIN 20 MG TABLET PO (09:26)
[2024-07-26] MEDS: DOCUSATE SODIUM 100 MG CAPSULE PO (09:26)
[2024-07-26] MEDS: ISOSORBIDE MONONITRATE 30 MG TAB.ER.24H PO (09:27)
[2024-07-26] MEDS: TAMSULOSIN HCL 0.4 MG CAPSULE PO (09:27)
[2024-07-26] MEDS: LOSARTAN POTASSIUM 25 MG TABLET PO (09:27)
[2024-07-26] MEDS: ASPIRIN 81 MG ENTERIC TABLET PO (09:27)
[2024-07-26] MEDS: carvediloL 6.25 MG TABLET PO (09:27)
[2024-07-26] MEDS: PANTOPRAZOLE 40 MG TABLET PO (09:27)
[2024-07-26 10:02] LABS: Partial Thromboplastin Time 68.4 Seconds (22.3-36.8)
[2024-07-26 10:37] LABS: Troponin I 0.532 ng/mL (0.000-0.034)
[2024-07-26] MEDS: POTASSIUM CHLORIDE 20 MEQ ER TABLET 40 MEQ PO (11:03)
[2024-07-26] MEDS: POTASSIUM CHLORIDE INJ 40 MEQ in SODIUM CHLORIDE 0.9% IV 500 ML 130 MEQ IVPB (11:03)
[2024-07-26] MEDS: HEPARIN SODIUM 5,000 UNITS/ML VIAL 2500 UNITS IV PUSH (11:12)
--- NOTE | 2024-07-26 12:30 | PM.PNCARD ---
Progress Note: A&P Assessment and Plan (1) NSTEMI (non-ST elevated myocardial infarction): Code(s): I21.4 - Non-ST elevation (NSTEMI) myocardial infarction Status: Acute (2) Hyperlipidemia: Code(s): E78.5 - Hyperlipidemia, unspecified Status: Acute Plan 68-year-old man with CAD status post PCI (2 stents), stroke history (left hemisphere), history of bladder cancer, and hepatitis-C presented with chest pain and vomiting admitted for non ST elevation MS Non ST elevation MS -given his presentation, would proceed with cardiac catheterization with possible PCI -risk and benefits were discussed with the patient as well as alternatives and patient agreed to proceed for with cardiac catheterization with possible PCI -can discontinue heparin drip in anticipation of cardiac catheterization -continue aspirin 81 mg p.o. daily Hypertension -continue carvedilol 6.25 mg p.o. b.i.d., losartan 25 mg p.o. daily, isosorbide mononitrate 30 mg p.o. daily -will go ahead and obtain bilateral renal ultrasound duplex to rule out renal artery stenosis -if patient has no renal artery stenosis, and further blood pressure control is required, can up titrate losartan to 50 mg p.o. daily and carvedilol can be uptitrated to 12.5 mg p.o. b.i.d. Hyperlipidemia -continue rosuvastatin 20 mg every evening Subjective Date/time seen: 07/26/24 12:30 Interval history: Feeling much better today. No further chest discomfort or vomiting. Review of Systems Cardiovascular: Cardiovascular: Reports as per HPI Respiratory: Respiratory: Reports as per HPI Exam Const: General: comfortable HENMT: Mouth: Yes moist mucous membranes Eyes: EOM: EOMs intact bilaterally Neck: Neck: no JVD Resp: Effort & Inspection: normal respiratory effort Auscultation: clear to auscultation bilaterally Cardio: Rate: regular rate Rhythm: regular rhythm GI: GI Palp: Yes Soft to palpation Neuro: Speech: normal speech Extrem: General: no pedal edema Objective Data Vital Signs Vital Signs: Vital Signs - 24 hr 07/25/24 12:45 07/25/24 13:30 07/25/24 14:00 Temperature Pulse Rate 78 62 78 Respiratory Rate 19 19 16 Blood Pressure 156/83 H 159/75 H 164/77 H Pulse Oximetry 94 97 97 Oxygen Delivery 07/25/24 15:20 07/25/24 16:00 07/25/24 16:00 Temperature 37.2 C Pulse Rate 84 69 Respiratory Rate 18 Blood Pressure 155/78 H Pulse Oximetry 98 Oxygen Delivery Room Air 07/25/24 18:00 07/25/24 19:00 07/25/24 20:00 Temperature 36.8 C Pulse Rate 83 80 Respiratory Rate 18 Blood Pressure 172/102 H Pulse Oximetry 93 Oxygen Delivery Room Air 07/25/24 20:00 07/25/24 22:00 07/25/24 23:05 Temperature 36.9 C Pulse Rate 72 73 81 Respiratory Rate 18 Blood Pressure 132/81 Pulse Oximetry 97 Oxygen Delivery 07/26/24 00:00 07/26/24 00:00 07/26/24 02:00 Temperature Pulse Rate 67 89 Respiratory Rate Blood Pressure Pulse Oximetry Oxygen Delivery Room Air 07/26/24 03:19 07/26/24 04:00 07/26/24 04:00 Temperature 36.8 C Pulse Rate 77 63 Respiratory Rate 18 Blood Pressure 112/75 Pulse Oximetry 94 Oxygen Delivery Room Air 07/26/24 06:00 07/26/24 07:37 07/26/24 08:00 Temperature 36.7 C Pulse Rate 90 65 62 Respiratory Rate 16 Blood Pressure 123/56 L Pulse Oximetry 97 Oxygen Delivery 07/26/24 11:17 Temperature 36.9 C Pulse Rate 95 Respiratory Rate 16 Blood Pressure 130/89 Pulse Oximetry 100 Oxygen Delivery Intake/Output Intake/Output: Intake & Output 07/23/24 07/24/24 07/25/24 07/26/24 23:59 23:59 23:59 23:59 Intake Total 1173.7 257.0 Balance 1173.7 257.0 Meds/Results Medications: Active Medications Generic Name Dose Route Start Last Admin Trade Name Freq PRN Reason Stop Dose Admin Acetaminophen 650 mg 07/25/24 13:49 Acetaminophen 325 Mg Tablet PO Q4H PRN Mild Pain (1-3) or Fever Aspirin 81 mg 07/26/24 09:00 07/26/24 09:27 Aspirin 81 Mg Enteric Tablet PO 81 mg QAM ERLINDA Administration Carvedilol 6.25 mg 07/26/24 09:00 07/26/24 09:27 Carvedilol 6.25 Mg Tablet PO 6.25 mg Q12HR ERLINDA Administration Docusate Sodium 100 mg 07/25/24 17:00 07/26/24 09:26 Docusate Sodium 100 Mg Capsule PO 100 mg BID ERLINDA Administration Duloxetine HCl 30 mg 07/26/24 09:00 07/26/24 09:26 Duloxetine Hcl 30 Mg Capsule.Dr PO 30 mg Q12HR ERLINDA Administration Finasteride 5 mg 07/26/24 09:00 07/26/24 09:26 Finasteride 5 Mg Tablet PO 5 mg QAM ERLINDA Administration Hydralazine HCl 10 mg 07/25/24 13:47 07/25/24 18:51 Hydralazine Hcl 20 Mg/Ml Vial IV PUSH 10 mg Q8H PRN Administration Blood Pressure - High Hydralazine HCl 10 mg 07/25/24 18:56 Hydralazine Hcl 20 Mg/Ml Vial IV PUSH Q4H PRN Blood Pressure - High Potassium Chloride 40 meq/ 520 mls @ 130 mls/hr 07/26/24 10:23 07/26/24 11:03 Sodium Chloride IVPB 07/26/24 14:22 130 mls/hr ONCE ONE Administration Isosorbide Mononitrate 30 mg 07/26/24 09:00 07/26/24 09:27 Isosorbide Mononitrate 30 Mg Tab.Er.24h PO 30 mg DAILY ERLINDA Administration Levetiracetam 500 mg 07/26/24 00:10 07/26/24 09:26 Levetiracetam 500 Mg Tablet PO 500 mg Q12HR ERLINDA Administration Losartan Potassium 25 mg 07/26/24 09:00 07/26/24 09:27 Losartan Potassium 25 Mg Tablet PO 25 mg DAILY ERLINDA Administration Nitroglycerin 0.4 mg 07/25/24 14:59 Nitroglycerin Sl 0.4 Mg Tablet SUBLINGUAL Q5MIN PRN Chest Pain Pantoprazole Sodium 40 mg 07/26/24 09:00 07/26/24 09:27 Pantoprazole 40 Mg Tablet PO 40 mg QAM ERLINDA Administration Perflutren Lipid Microsphere 0 ml 07/25/24 13:18 Perflutren Lipid Microspheres 1.5 Ml Vial Diluted To 10 Ml Total Volume IV PUSH 07/28/24 13:18 ONCE PRN adequate visualization Protocol Primidone 50 mg 07/26/24 00:10 07/26/24 01:59 Primidone 50 Mg Tablet PO 50 mg HS ERLINDA Administration Rosuvastatin Calcium 20 mg 07/26/24 09:00 07/26/24 09:26 Rosuvastatin 20 Mg Tablet PO 20 mg DAILY ERLINDA Administration Tamsulosin HCl 0.4 mg 07/26/24 09:00 07/26/24 09:27 Tamsulosin Hcl 0.4 Mg Capsule PO 0.4 mg DAILY ERLINDA Administration Trimethobenzamide HCl 200 mg 07/25/24 14:55 Trimethobenzamide Hcl 200 Mg/2 Ml Vial IM Q6H PRN Nausea And Vomiting Radiology Results: ITS Impressions Chest X-Ray 07/25/24 12:02 IMPRESSION: 1: NO ACUTE CARDIOPULMONARY DISEASE. Chest/Abdomen/Pelvis CTA 07/25/24 12:49 IMPRESSION: 1. No significant vascular abnormality. 2: Mild-moderate left hydronephrosis. No obstructing stone or mass identified. 3: Enlarged prostate gland. Mild bladder wall thickening which may be due to outlet obstruction or less likely cystitis. 4.: Interlobular septal thickening with patchy groundglass opacities which may reflect chronic interstitial lung disease, small airway disease or less likely pneumonia. Labs Labs: Laboratory Results - last 24 hr 07/25/24 07/25/24 07/25/24 12:59 15:25 20:12 WBC 8.7 9.9 RBC 4.28 L 4.60 Hgb 11.7 L 12.5 L Hct 37.2 L 39.4 L MCV 86.9 85.7 MCH 27.3 27.2 MCHC 31.5 L 31.7 L RDW 18.2 H 18.3 H Plt Count 204 236 MPV 10.4 10.4 Immature Gran % (Auto) 0.3 0.2 Neut % (Auto) 76.3 H 77.5 H Lymph % (Auto) 12.7 L 14.2 L [place] % (Auto) 9.2 H 7.4 Eos % (Auto) 0.8 0.4 Baso % (Auto) 0.7 0.3 Lymph # (Auto) 1.11 1.41 [place] # (Auto) 0.8 H 0.7 H Eos # (Auto) 0.1 0.0 Baso # (Auto) 0.1 0.0 Abs Immat Gran (auto) 0.03 0.02 Absolute Neuts (auto) 6.7 7.7 H Absolute Nucleated RBC 0.000 0.000 Nucleated RBC % 0.0 0.0 PT 14.0 14.7 13.9 INR 1.0 1.1 1.0 APTT 30.6 159.0 H 44.7 H Sodium 134 L Potassium 3.5 Chloride 102 Carbon Dioxide 20 L Anion Gap 12 BUN 37 H Creatinine 1.42 H Estim Creat Clear Calc 43 Estimated GFR 49 L Glucose 107 Calcium 9.0 Total Bilirubin 1.1 AST 39 ALT 21 Alkaline Phosphatase 77 Troponin I 0.462 H* 0.712 H* D 1.120 H* D Total Protein 7.0 Albumin 4.4 Triglycerides 85 Cholesterol 163 LDL Cholesterol Direct 73 HDL Direct 59 Lipase 38 07/26/24 07/26/24 07/26/24 02:57 08:56 08:59 WBC 6.3 RBC 4.47 L Hgb 12.3 L Hct 38.9 L MCV 87.0 MCH 27.5 MCHC 31.6 L RDW 18.3 H Plt Count 199 MPV 10.5 H Immature Gran % (Auto) 0.3 Neut % (Auto) 74.7 H Lymph % (Auto) 14.5 L [place] % (Auto) 9.4 H Eos % (Auto) 0.3 Baso % (Auto) 0.8 Lymph # (Auto) 0.91 [place] # (Auto) 0.6 Eos # (Auto) 0.0 Baso # (Auto) 0.1 Abs Immat Gran (auto) 0.02 Absolute Neuts (auto) 4.7 Absolute Nucleated RBC 0.000 Nucleated RBC % 0.0 PT INR APTT 85.7 H 68.4 H Sodium 139 Potassium 3.3 L Chloride 104 Carbon Dioxide 21 L Anion Gap 14 H BUN 27 H D Creatinine 1.10 Estim Creat Clear Calc 53 Estimated GFR > 60 Glucose 121 H Calcium 9.1 Total Bilirubin AST ALT Alkaline Phosphatase Troponin I 0.532 H* Total Protein Albumin Triglycerides Cholesterol LDL Cholesterol Direct HDL Direct Lipase
--- NOTE | 2024-07-26 12:39 | WPDMODSED ---
Moderate Sedation Note-Pt Data Patient Data Allergies Allergy/AdvReac Type Severity Reaction Status Date / Time No Known Allergies Allergy Verified 07/25/24 15:23 Home Medications ?Medication ?Instructions ?Recorded ?Confirmed ?Type amlodipine 10 mg tablet 10 mg PO ONCE 07/25/24 07/25/24 History aspirin 81 mg capsule 81 mg PO DAILY 07/25/24 07/25/24 History carvedilol 6.25 mg tablet 6.25 mg PO BID 07/25/24 07/25/24 History clotrimazole-betamethasone 1 1 applic topical BID 07/25/24 07/25/24 History %-0.05 % topical cream cyanocobalamin (vitamin B-12) 50 50 mcg PO DAILY 07/25/24 07/25/24 History mcg tablet (Vitamin B-12) duloxetine 30 mg capsule,delayed 30 mg PO BID 07/25/24 07/25/24 History release isosorbide mononitrate 30 mg 30 mg PO DAILY 07/25/24 07/25/24 History tablet,extended release 24 hr levetiracetam 500 mg tablet 500 mg PO BID 07/25/24 07/25/24 History losartan 25 mg tablet (Cozaar) 25 mg PO DAILY 07/25/24 07/25/24 History nitroglycerin 0.4 mg PO TID PRN chest pain 07/25/24 07/25/24 History pantoprazole 40 mg tablet,delayed 40 mg PO QAM 07/25/24 07/25/24 History release primidone 50 mg tablet 50 mg PO HS 07/25/24 07/25/24 History rosuvastatin 20 mg tablet 20 mg PO DAILY 07/25/24 07/25/24 History tamsulosin 0.4 mg capsule 0.4 mg PO DAILY 07/25/24 07/25/24 History umeclidinium 62.5 mcg-vilanterol 1 inh inhalation DAILY 07/25/24 07/25/24 History 25 mcg/actuation powdr for inhalation (Anoro Ellipta) Current Medications: Active Medications Acetaminophen (Acetaminophen 325 Mg Tablet) 650 mg PO Q4H PRN PRN Reason: Mild Pain (1-3) or Fever Aspirin (Aspirin 81 Mg Enteric Tablet) 81 mg PO QAM [facility] Last Admin: 07/26/24 09:27 Dose: 81 mg Carvedilol (Carvedilol 6.25 Mg Tablet) 6.25 mg PO Q12HR [facility] Last Admin: 07/26/24 09:27 Dose: 6.25 mg Docusate Sodium (Docusate Sodium 100 Mg Capsule) 100 mg PO BID [facility] Last Admin: 07/26/24 09:26 Dose: 100 mg Duloxetine HCl (Duloxetine Hcl 30 Mg Capsule.Dr) 30 mg PO Q12HR [facility] Last Admin: 07/26/24 09:26 Dose: 30 mg Finasteride (Finasteride 5 Mg Tablet) 5 mg PO QAM [facility] Last Admin: 07/26/24 09:26 Dose: 5 mg Hydralazine HCl (Hydralazine Hcl 20 Mg/Ml Vial) 10 mg IV PUSH Q8H PRN PRN Reason: Blood Pressure - High Last Admin: 07/25/24 18:51 Dose: 10 mg Hydralazine HCl (Hydralazine Hcl 20 Mg/Ml Vial) 10 mg IV PUSH Q4H PRN PRN Reason: Blood Pressure - High Potassium Chloride 40 meq/ (Sodium Chloride) 520 mls @ 130 mls/hr IVPB ONCE ONE Stop: 07/26/24 14:22 Last Admin: 07/26/24 11:03 Dose: 130 mls/hr Isosorbide Mononitrate (Isosorbide Mononitrate 30 Mg Tab.Er.24h) 30 mg PO DAILY [facility] Last Admin: 07/26/24 09:27 Dose: 30 mg Levetiracetam (Levetiracetam 500 Mg Tablet) 500 mg PO Q12HR [facility] Last Admin: 07/26/24 09:26 Dose: 500 mg Losartan Potassium (Losartan Potassium 25 Mg Tablet) 25 mg PO DAILY [facility] Last Admin: 07/26/24 09:27 Dose: 25 mg Nitroglycerin (Nitroglycerin Sl 0.4 Mg Tablet) 0.4 mg SUBLINGUAL Q5MIN PRN PRN Reason: Chest Pain Pantoprazole Sodium (Pantoprazole 40 Mg Tablet) [facility] [place] [facility] [place] Last Admin: 07/26/24 09:27 Dose: 40 mg Perflutren Lipid Microsphere (Perflutren Lipid Microspheres 1.5 Ml Vial Diluted To 10 Ml Total Volume) 0 ml IV PUSH ONCE PRN; Protocol PRN Reason: adequate visualization Stop: 07/28/24 13:18 Primidone (Primidone 50 Mg Tablet) 50 mg PO HS [facility] Last Admin: 07/26/24 01:59 Dose: 50 mg Rosuvastatin Calcium (Rosuvastatin 20 Mg Tablet) 20 mg PO EVENING [facility] Tamsulosin HCl (Tamsulosin Hcl 0.4 Mg Capsule) 0.4 mg PO DAILY [facility] Last Admin: 07/26/24 09:27 Dose: 0.4 mg Trimethobenzamide HCl (Trimethobenzamide Hcl 200 Mg/2 Ml Vial) 200 mg IM Q6H PRN PRN Reason: Nausea And Vomiting Sedation/Anesthesia: No previous sedation/anesthesia problems (including family history). [facility] Past Medical History Medical History (Updated 07/26/24 @ 12:38 by Danny Quigley MD) HTN (hypertension) Social History Social History Smoking status: Former smoker Tobacco type: cigarettes Alcohol intake: former Substance use type: former substance user and marijuana Do You Feel Safe in your Home?: Yes Lack of Transportation: No Lack of Food: Never True Current Housing: I Have Housing Concerned About Future Housing: No Difficulty Paying Gas/Electric Bills: No Difficulty Paying for Meds: No Currently Unemployed: No Education: Never Attended/Kindergarten Only Difficulty w/ Childcare or Family Care: No Spiritual care concerns: No Mod Sed Physical Exam Physical Exam Pre Procedural Exam: Normal: Airway, Lungs and Heart Rate Hours since solid foods: 12 Hours since liquid intake: 12 Mallampati Classification: class II Internal Medicine - PN: Obj Da Vital Signs Vital Signs: Vital Signs - 24 hr 07/25/24 12:45 07/25/24 13:30 07/25/24 14:00 Temperature Pulse Rate 78 62 78 Respiratory Rate 19 19 16 Blood Pressure 156/83 H 159/75 H 164/77 H Pulse Oximetry 94 97 97 Oxygen Delivery 07/25/24 15:20 07/25/24 16:00 07/25/24 16:00 Temperature 37.2 C Pulse Rate 84 69 Respiratory Rate 18 Blood Pressure 155/78 H Pulse Oximetry 98 Oxygen Delivery Room Air 07/25/24 18:00 07/25/24 19:00 07/25/24 20:00 Temperature 36.8 C Pulse Rate 83 80 Respiratory Rate 18 Blood Pressure 172/102 H Pulse Oximetry 93 Oxygen Delivery Room Air 07/25/24 20:00 07/25/24 22:00 07/25/24 23:05 Temperature 36.9 C Pulse Rate 72 73 81 Respiratory Rate 18 Blood Pressure 132/81 Pulse Oximetry 97 Oxygen Delivery 07/26/24 00:00 07/26/24 00:00 07/26/24 02:00 Temperature Pulse Rate 67 89 Respiratory Rate Blood Pressure Pulse Oximetry Oxygen Delivery Room Air 07/26/24 03:19 07/26/24 04:00 07/26/24 04:00 Temperature 36.8 C Pulse Rate 77 63 Respiratory Rate 18 Blood Pressure 112/75 Pulse Oximetry 94 Oxygen Delivery Room Air 07/26/24 06:00 07/26/24 07:37 07/26/24 08:00 Temperature 36.7 C Pulse Rate 90 65 62 Respiratory Rate 16 Blood Pressure 123/56 L Pulse Oximetry 97 Oxygen Delivery 07/26/24 11:17 Temperature 36.9 C Pulse Rate 95 Respiratory Rate 16 Blood Pressure 130/89 Pulse Oximetry 100 Oxygen Delivery Intake/Output Intake/Output: Intake & Output 07/23/24 07/24/24 07/25/24 07/26/24 23:59 23:59 23:59 23:59 Intake Total 1173.7 257.0 Balance 1173.7 257.0 Meds/Results Medications: Active Medications Generic Name Dose Route Start Last Admin Trade Name Freq PRN Reason Stop Dose Admin Acetaminophen 650 mg 07/25/24 13:49 Acetaminophen 325 Mg Tablet PO Q4H PRN Mild Pain (1-3) or Fever Aspirin 81 mg 07/26/24 09:00 07/26/24 09:27 Aspirin 81 Mg Enteric Tablet PO 81 mg QAM ERLINDA Administration Carvedilol 6.25 mg 07/26/24 09:00 07/26/24 09:27 Carvedilol 6.25 Mg Tablet PO 6.25 mg Q12HR ERLINDA Administration Docusate Sodium 100 mg 07/25/24 17:00 07/26/24 09:26 Docusate Sodium 100 Mg Capsule PO 100 mg BID ERLINDA Administration Duloxetine HCl 30 mg 07/26/24 09:00 07/26/24 09:26 Duloxetine Hcl 30 Mg Capsule.Dr PO 30 mg Q12HR ERLINDA Administration Finasteride 5 mg 07/26/24 09:00 07/26/24 09:26 Finasteride 5 Mg Tablet PO 5 mg QAM ERLINDA Administration Hydralazine HCl 10 mg 07/25/24 13:47 07/25/24 18:51 Hydralazine Hcl 20 Mg/Ml Vial IV PUSH 10 mg Q8H PRN Administration Blood Pressure - High Hydralazine HCl 10 mg 07/25/24 18:56 Hydralazine Hcl 20 Mg/Ml Vial IV PUSH Q4H PRN Blood Pressure - High Potassium Chloride 40 meq/ 520 mls @ 130 mls/hr 07/26/24 10:23 07/26/24 11:03 Sodium Chloride IVPB 07/26/24 14:22 130 mls/hr ONCE ONE Administration Isosorbide Mononitrate 30 mg 07/26/24 09:00 07/26/24 09:27 Isosorbide Mononitrate 30 Mg Tab.Er.24h PO 30 mg DAILY ERLINDA Administration Levetiracetam 500 mg 07/26/24 00:10 07/26/24 09:26 Levetiracetam 500 Mg Tablet PO 500 mg Q12HR ERLINDA Administration Losartan Potassium 25 mg 07/26/24 09:00 07/26/24 09:27 Losartan Potassium 25 Mg Tablet PO 25 mg DAILY ERLINDA Administration Nitroglycerin 0.4 mg 07/25/24 14:59 Nitroglycerin Sl 0.4 Mg Tablet SUBLINGUAL Q5MIN PRN Chest Pain Pantoprazole Sodium 40 mg 07/26/24 09:00 07/26/24 09:27 Pantoprazole 40 Mg Tablet PO 40 mg QAM ERLINDA Administration Perflutren Lipid Microsphere 0 ml 07/25/24 13:18 Perflutren Lipid Microspheres 1.5 Ml Vial Diluted To 10 Ml Total Volume IV PUSH 07/28/24 13:18 ONCE PRN adequate visualization Protocol Primidone 50 mg 07/26/24 00:10 07/26/24 01:59 Primidone 50 Mg Tablet PO 50 mg HS ERLINDA Administration Rosuvastatin Calcium 20 mg 07/26/24 18:00 Rosuvastatin 20 Mg Tablet PO EVENING ERLINDA Tamsulosin HCl 0.4 mg 07/26/24 09:00 07/26/24 09:27 Tamsulosin Hcl 0.4 Mg Capsule PO 0.4 mg DAILY ERLINDA Administration Trimethobenzamide HCl 200 mg 07/25/24 14:55 Trimethobenzamide Hcl 200 Mg/2 Ml Vial IM Q6H PRN Nausea And Vomiting Radiology Results: ITS Impressions Chest X-Ray 07/25/24 12:02 IMPRESSION: 1: NO ACUTE CARDIOPULMONARY DISEASE. Chest/Abdomen/Pelvis CTA 07/25/24 12:49 IMPRESSION: 1. No significant vascular abnormality. 2: Mild-moderate left hydronephrosis. No obstructing stone or mass identified. 3: Enlarged prostate gland. Mild bladder wall thickening which may be due to outlet obstruction or less likely cystitis. 4.: Interlobular septal thickening with patchy groundglass opacities which may reflect chronic interstitial lung disease, small airway disease or less likely pneumonia. Labs 07/26/24 02:57 07/26/24 02:57 Labs: Laboratory Results - last 24 hr 07/25/24 07/25/24 07/25/24 12:59 15:25 20:12 WBC 8.7 9.9 RBC 4.28 L 4.60 Hgb 11.7 L 12.5 L Hct 37.2 L 39.4 L MCV 86.9 85.7 MCH 27.3 27.2 MCHC 31.5 L 31.7 L RDW 18.2 H 18.3 H Plt Count 204 236 MPV 10.4 10.4 Immature Gran % (Auto) 0.3 0.2 Neut % (Auto) 76.3 H 77.5 H Lymph % (Auto) 12.7 L 14.2 L [place] % (Auto) 9.2 H 7.4 Eos % (Auto) 0.8 0.4 Baso % (Auto) 0.7 0.3 Lymph # (Auto) 1.11 1.41 [place] # (Auto) 0.8 H 0.7 H Eos # (Auto) 0.1 0.0 Baso # (Auto) 0.1 0.0 Abs Immat Gran (auto) 0.03 0.02 Absolute Neuts (auto) 6.7 7.7 H Absolute Nucleated RBC 0.000 0.000 Nucleated RBC % 0.0 0.0 PT 14.0 14.7 13.9 INR 1.0 1.1 1.0 APTT 30.6 159.0 H 44.7 H Sodium 134 L Potassium 3.5 Chloride 102 Carbon Dioxide 20 L Anion Gap 12 BUN 37 H Creatinine 1.42 H Estim Creat Clear Calc 43 Estimated GFR 49 L Glucose 107 Calcium 9.0 Total Bilirubin 1.1 AST 39 ALT 21 Alkaline Phosphatase 77 Troponin I 0.462 H* 0.712 H* D 1.120 H* D Total Protein 7.0 Albumin 4.4 Triglycerides 85 Cholesterol 163 LDL Cholesterol Direct 73 HDL Direct 59 Lipase 38 07/26/24 07/26/24 07/26/24 02:57 08:56 08:59 WBC 6.3 RBC 4.47 L Hgb 12.3 L Hct 38.9 L MCV 87.0 MCH 27.5 MCHC 31.6 L RDW 18.3 H Plt Count 199 MPV 10.5 H Immature Gran % (Auto) 0.3 Neut % (Auto) 74.7 H Lymph % (Auto) 14.5 L [place] % (Auto) 9.4 H Eos % (Auto) 0.3 Baso % (Auto) 0.8 Lymph # (Auto) 0.91 [place] # (Auto) 0.6 Eos # (Auto) 0.0 Baso # (Auto) 0.1 Abs Immat Gran (auto) 0.02 Absolute Neuts (auto) 4.7 Absolute Nucleated RBC 0.000 Nucleated RBC % 0.0 PT INR APTT 85.7 H 68.4 H Sodium 139 Potassium 3.3 L Chloride 104 Carbon Dioxide 21 L Anion Gap 14 H BUN 27 H D Creatinine 1.10 Estim Creat Clear Calc 53 Estimated GFR > 60 Glucose 121 H Calcium 9.1 Total Bilirubin AST ALT Alkaline Phosphatase Troponin I 0.532 H* Total Protein Albumin Triglycerides Cholesterol LDL Cholesterol Direct HDL Direct Lipase ASA Classification/Sedation ASA Classification/Sedation ASA Class: III Emergent: No Risks: Risks, benefits and alternatives explained and patient/family accepted plan for sedation. Patient re-evaluated immediately prior to sedation.
--- NOTE | 2024-07-26 12:39 | WPDHPUPDATE1 ---
History and Physical Update Update Date/Time: 07/26/24 09:39 History and Physical has been reviewed, including an updated exam of the patient. There are NO changes in the patient's condition. Risks, benefits, and alternatives have been discussed and questions answered. Patient agrees to proceed with procedure.
--- NOTE | 2024-07-26 13:35 | WPDCARDPROC ---
Cardiac Cath Procedure Note Date of procedure:: 07/26/24 Performing physician:: CATHETERIZATION LABORATORY REPORT Procedure Date: 07/26/2024 Referring Physician: Dr. Ellis Anesthesia: Versed and Fentanyl were ordered and given in my presence at 1314, procedure ended at 1328. Supervision of nurse, Nanette Figueroa monitored moderate sedation with 2mg Versed and 50mcg Fentanyl was provided for 14 minutes. Pre-op Diagnosis: NSTEMI Post-op Diagnosis: NSTEMI Procedure(s): Left heart catheterization with coronary angiography Access Site: Right radial artery Brief History and Clinical Indications: 68-year-old man with CAD status post PCI (2 stents), stroke history (left hemisphere), history of bladder cancer, and hepatitis-C presented with chest pain and vomiting admitted for non ST elevation CT is now here to define his coronary anatomy with possible PCI All risks, benefits and alternatives to left heart catheterization with or without percutaneous coronary intervention was discussed at length with the patient. Risk of complications including but not limited to bleeding, infection, arrhythmia, stroke, worsening kidney function, blood loss, groin hematoma, limb loss, emergency coronary artery bypass grafting, and even were discussed with the patient and all questions were answered. The patient understood and wished to proceed. Time out called, patient name, date of , medical record number, allergies, procedure performed, identify Trademark Attorney, patient and staff member concurred with accurate data, procedure carried on. Findings: LEFT HEART CATHETERIZATION FINDINGS: 1. Left main: The left main coronary artery is widely patent without any significant obstructive disease. 2. Left anterior descending: The LAD gives off 6 diagonal branches. The mid LAD has 10-20% stenosis. The remainder of the vessel and its branches have luminal irregularities 3. Left circumflex: The left circumflex artery provides 2 OM branches. The left circumflex is angiographically free of disease. OM1 has a long segment of 10-20% ISR. OM2 has luminal irregularities distally. 4. Right coronary artery: The RCA is a large dominant vessel. The proximal RCA has 20-30% diffuse stenosis. The mid RCA has 10-30% diffuse stenosis. The distal RCA and posterior lateral branches are angiographically free of disease. The ostium of the RPDA has 10% stenosis and mid body of the RPDA has 50-60% stenosis. 5. Left ventricle: A. End-diastolic pressure 28 mmHg. B. LV gram deferred. C. No significant gradient across aortic valve on catheter pullback. 6. Opening AO pressure 101/69 and closing AO pressure 108/62 Description of Procedure: Informed consent signed and placed in the chart. Patient transferred to labor relations or personnel negotiator room. Prepped and draped in usual sterile fashion. 2% lidocaine injected subcutaneously in right wrist area. 22-gauge venipuncture catheter used to access the right radial artery with the Seldinger technique. 6-FR slender sheath placed in right radial artery. Nitroglycerin 200mcg, Verapamil 2.5mg, and Heparin 5000U was given intraarterial through the sheath. J wire advanced under fluoroscopy. 5F TIG diagnostic catheter engaged Left Main Coronary Artery. 5F TIG diagnostic catheter engaged Right Coronary Artery. Multiple orthogonal angiogram obtained and reviewed 5F Pigtail diagnostic catheter crossed aortic valve to obtain LVEDP, LV angiogram deferred. Hemostasis was achieved by application of TR band. Assessment: Non ST-elevation CT type 2 likely secondary to medication noncompliance leading to hypertensive emergency Nonobstructive coronary artery disease Post Operative Condition: Stable No significant blood loss Disposition: Home Plan: Patient can be discharged home 2 hours after TR band removal of access site is stable. Aspirin 81 mg p.o. daily indefinitely. We will start Plavix 75 mg p.o. daily for minimum of 6 months. Continue high intensity statin, rosuvastatin 20 mg every evening. We discussed the importance of medical adherence. Patient can follow-up with me in 1 month. Danny Quigley Interventional Cardiology
[2024-07-26] MEDS: SODIUM CHLORIDE 0.9% IV 1,000 ML 125 ML IV CONT (15:08)
--- NOTE | 2024-07-26 15:23 | P.DS_ITS ---
DS: Admitting Diagnosis Discharge Date 07/26/2024 Admitting Diagnosis Chest pain DS: Discharge Diagnosis Discharge Diagnosis (1) NSTEMI (non-ST elevated myocardial infarction): Code(s): I21.4 - Non-ST elevation (NSTEMI) myocardial infarction Status: Acute DS: Summary Hospital Course Hospital Course: 68-year-old male presents the hospital with severe chest pain. Patient states that he took 9 nitro at home and believes he passed out. When he woke up he still had chest pain side presents to the hospital. Patient is of extremely poor historian with short-term memory issues due to strokes. HPI gathered from chart review. Current to the chart the patient had chest pain today and took 829 nitros for his chest pain with no relief, he states that he may pass out. When he woke up he still had chest pain so he presented to the hospital. According to the chart the patient also complained of nausea and vomiting and not eating for the last few days. Patient denies fevers chills. On bedside exam patient denies chest pain. Patient's lab work shows anemia 11.7, sodium of 134, carbon dioxide of 11, BUN of 37, creatinine of 1.42 unknown baseline, GFR 49, baseline troponin of 0.462. CT shows no acute findings with Enlarged prostate gland. Mild bladder wall thickening which may be due to outlet obstruction and Interlobular septal thickening with patchy ground-glass opacities which may reflect chronic interstitial lung disease, small airway disease or less likely pneumonia. EKG shows sinus rhythm with sinus arrhythmia and abnormal T-waves. QTC 508. In the ED the patient was given aspirin and started on heparin drip and Cardiolo gy was consulted. Cardiology was consulted and patient underwent cardiac cath, cardiology recommended ASpirin, Plavix x 6 months and Crestor 20mg daily. They will follow up in the office in 1 month. MARQUEZ resolved, creatinine 1.20 from 1.42, s/p IVF patient counseled about medication compliance. F/u with PCP in 3-5 days. Time Spent with Patient Time attestation: Total time spent providing and/or coordinating discharge services: DS: Data Data Completed and Pending Labs on day of discharge: Labs from last 24 hours 07/26/24 07/26/24 07/26/24 08:59 08:56 02:57 WBC 6.3 RBC 4.47 L Hgb 12.3 L Hct 38.9 L MCV 87.0 MCH 27.5 MCHC 31.6 L RDW 18.3 H Plt Count 199 MPV 10.5 H Immature Gran % (Auto) 0.3 Neut % (Auto) 74.7 H Lymph % (Auto) 14.5 L [place] % (Auto) 9.4 H Eos % (Auto) 0.3 Baso % (Auto) 0.8 Lymph # (Auto) 0.91 [place] # (Auto) 0.6 Eos # (Auto) 0.0 Baso # (Auto) 0.1 Abs Immat Gran (auto) 0.02 Absolute Neuts (auto) 4.7 Absolute Nucleated RBC 0.000 Nucleated RBC % 0.0 PT INR APTT 68.4 H 85.7 H Sodium 139 Potassium 3.3 L Chloride 104 Carbon Dioxide 21 L Anion Gap 14 H BUN 27 H D Creatinine 1.10 Estim Creat Clear Calc 53 Estimated GFR > 60 Glucose 121 H Calcium 9.1 Troponin I 0.532 H* Triglycerides Cholesterol LDL Cholesterol Direct HDL Direct 07/25/24 07/25/24 20:12 15:25 WBC 9.9 RBC 4.60 Hgb 12.5 L Hct 39.4 L MCV 85.7 MCH 27.2 MCHC 31.7 L RDW 18.3 H Plt Count 236 MPV 10.4 Immature Gran % (Auto) 0.2 Neut % (Auto) 77.5 H Lymph % (Auto) 14.2 L [place] % (Auto) 7.4 Eos % (Auto) 0.4 Baso % (Auto) 0.3 Lymph # (Auto) 1.41 [place] # (Auto) 0.7 H Eos # (Auto) 0.0 Baso # (Auto) 0.0 Abs Immat Gran (auto) 0.02 Absolute Neuts (auto) 7.7 H Absolute Nucleated RBC 0.000 Nucleated RBC % 0.0 PT 13.9 14.7 INR 1.0 1.1 APTT 44.7 H 159.0 H Sodium Potassium Chloride Carbon Dioxide Anion Gap BUN Creatinine Estim Creat Clear Calc Estimated GFR Glucose Calcium Troponin I 1.120 H* D 0.712 H* D Triglycerides 85 Cholesterol 163 LDL Cholesterol Direct 73 HDL Direct 59 Discharge Plan Discharge Attending physician on discharge: Pam Bliss Consulting providers: Marla Taylor Discharging Clinician: Pam Bliss Anticipated Discharge Date/Time: 07/26/24 15:20 Patient Disposition: Home Activity: as tolerated Diet: as tolerated and heart healthy Discharge Instructions: [facility] [address] [place] [address] DISCHARGE INSTRUCTIONS - POST RADIAL CATH Activity 1. No driving for 24 hours. 2. No lifting more than 5 lb with affected arm for 1 week. 3. May shower ( tomorrow) but no excessive soaking of affected hand/wrist (such as washing dishes), swimming pool or hot tub for 5 days. Wound Care 1. May remove arm board in the morning. 2. May remove gauze dressing in the morning and put Band-Aid over affected radial site. Keep site covered for 3 days. 3. Observe for redness, drainage, swelling or bleeding. Medications DO NOT STOP YOUR MEDICATIONS ONLY YOUR BREAKFAST HOST CAN STOP THE FOLLOWING MEDICATIONS - PLEASE CALL THE OFFICE WITH QUESTIONS. *Aspirin *Atorvastatin *Clopidogrel (Plavix) Important Reminders 1. Keep your stent card in your wallet at all times 2. Follow a heart healthy diet paying extra attention to cholesterol and fats. 3. Stay hydrated. 4. If you have chest pain unrelieved by rest or nitroglycerin (if prescribed) call 911 immediately. 5. If you miss one dose of Brilinta (if prescribed) take a tablet at the next time due. If you miss 2 doses take a tablet when you remember and resume at the next time due. *For any other questions please call the office at [phone]. Office hours are 8AM 4:30PM Friday through Friday. Patient Instructions: Antibiotic Form Patient Language: Bulgarian Stand Alone Forms: General Discharge Information Follow-up/Referrals: Jerry Tai DO [Primary Care Provider] - (F/u wt PCP in 3-5 days ) Marla Taylor MD [Physician] - (F/u with Cardiology as instructed ) Discharge Medications: New clopidogrel 75 mg Tablet 75 mg PO QAM 30 Days Qty: 30 2RF Continued umeclidinium-vilanterol [Anoro Ellipta] 62.5-25 mcg/actuation blister with device 1 inh inhalation DAILY levetiracetam 500 mg tablet 500 mg PO BID primidone 50 mg tablet 50 mg PO HS aspirin 81 mg capsule 81 mg PO DAILY tamsulosin 0.4 mg capsule 0.4 mg PO DAILY rosuvastatin 20 mg tablet 20 mg PO DAILY Vitamin B-12 50 mcg tablet 50 mcg PO DAILY duloxetine 30 mg capsule,delayed release(DR/EC) 30 mg PO BID pantoprazole 40 mg tablet,delayed release (DR/EC) 40 mg PO QAM carvedilol 6.25 mg tablet 6.25 mg PO BID Rx Instructions: must administer with a meal/food nitroglycerin 0.4 mg PO TID PRN (Reason: chest pain) Rx Instructions: 0.4 mg orally up to three doses in 5 minutes for ongoing chest pain PRN; losartan [Cozaar] 25 mg tablet 25 mg PO DAILY isosorbide mononitrate 30 mg tablet extended release 24 hr 30 mg PO DAILY amlodipine 10 mg tablet 10 mg PO ONCE clotrimazole-betamethasone 1-0.05 % cream 1 applic topical BID Date of admission: 07/25/24 13:49 Primary Care Provider: Jerry Tai Admitting Provider: Bogdan Stewart Attending physician on admission: Pam Bliss Condition: Stable
== END 2024-07-26 18:45 | disposition home or self-care (01) | DRG 282 ==
LOC: ANHED 14:21 → ANHIMU 14:39
PROVIDERS: Internal Medicine; Nurse Practitioner Gerontology; Admitting Provider General Practice; Emergency Provider Student in an Organized Health Care Education/Training Program; PCP Family Medicine; Visit Provider Internal Medicine
PROC: 4A023N7 Measurement of Cardiac Sampling and Pressure, Left Heart, Percutaneous Approach (ICD-10-PCS; CPT 93452; principal; 2024-07-26 13:00)
DX: I16.0 Hypertensive urgency (principal); I21.A1 Myocardial infarction type 2; Z91.148 Patient's other noncompliance with medication regimen for other reason; D64.9 Anemia, unspecified; I25.10 Atherosclerotic heart disease of native coronary artery without angina pectoris; R56.9 Unspecified convulsions; N40.0 Benign prostatic hyperplasia without lower urinary tract symptoms; E78.5 Hyperlipidemia, unspecified; I69.311 Memory deficit following cerebral infarction; Z95.5 Presence of coronary angioplasty implant and graft; Z87.891 Personal history of nicotine dependence; Z85.51 Personal history of malignant neoplasm of bladder; Z86.19 Personal history of other infectious and parasitic diseases
CPT/HCPCS: 36415; 71045; 71275; 74174; 80048; 80053; 80061; 83690; 84484; 85025; 85610; 85730; 93005; 93306; 93458; 96361; 96374; 96375; 99285; A9270; C1769; C1887; C1894; J0360; J1644; J2003; J2250; J2305; J2765; J3010; J3480; J7030; J7040; J7120; Q9967

== ENCOUNTER 2024-07-28 09:16 | Outpatient (CLI) | payer MEDICARE, SELFPAY ==
--- OUTSIDE RECORDS SUMMARY | 2024-07-28 09:21 | XMS_ITS | Continuity of Care Document ---
Author Organization [facility] Address [address] [place] [address] Phone Care Team Providers Care [employer]onder Name Role Phone Kimberley Reno, Martin Unavailable Unavailable Advance Directives Directive Yes / No Effective Date File Name No Information Encounters Encounter Description Practice Location Reason(s) For Visit Diagnoses Date Provider Providers Copied on Encounter Mister Spex, [address] [place], [id number] tel:[phone] No Information Kimberley Salazar. [address] [place], [address]. tel:[phone] Family History Family Member Type Diagnosis Age At Onset No Information Payers Payer name Insurance type Covered libertarian ID Authoriza tion(s) No Information Social History [...]
[2024-07-28 09:57] LABS: Basophils Absolute Auto 0.07 K/mm3 (0.00-0.10); Basophils Percent Auto 1.3 % (0.0-1.0); Eosinophils Absolute Auto 0.15 K/mm3 (0.02-0.50); Eosinophils Percent Auto 2.8 % (1.0-6.0); Hematocrit 33.2 % (37.0-46.0); Hemoglobin 10.3 g/dL (12.4-15.3); Immature Granulocyte Absolute 0.01 K/mm3 (0.00-0.00); Immature Granulocyte Percent A 0.2 % (0.0-0.0); Lymphocytes Absolute Auto 1.54 K/mm3 (1.10-4.50); Lymphocytes Percent Auto 28.3 % (18.0-42.0); Mean Corpuscular Hemoglobin 27.3 pg (27.0-31.0); Mean Corpuscular Volume 88.1 fL (78.0-102.0); Mean Platelet Volume 9.9 fl (8.7-11.0); Monocytes Absolute Auto 0.78 K/mm3 (0.10-0.90); Monocytes Percent Auto 14.3 % (2.0-11.0); Neutrophils Absolute Auto 2.89 K/mm3 (1.70-7.20); Neutrophils Percent Auto 53.1 % (50.0-70.0); Platelet Count Result 174 K/mm3 (150-420); Red Blood Count 3.77 M/mm3 (4.70-6.10); Red Cell Distribution Width 18.4 % (11.6-14.4); White Blood Count 5.4 K/mm3 (4.8-10.8)
[2024-07-28 11:05] LABS: Alanine Aminotransferase 14 U/L (6-50); Albumin Level 3.9 g/dL (3.5-5.1); Alkaline Phosphatase 63 U/L (38-126); Anion Gap 7 mmol/L (4-12); Aspartate Amino Transferase 27 U/L (17-59); Bilirubin,Total 0.4 mg/dL (0.2-1.3); Blood Urea Nitrogen 24 mg/dL (9-20); Calcium 8.7 mg/dL (8.4-10.2); Carbon Dioxide 23 mmol/L (22-30); Chloride 107 mmol/L (98-107); Cholesterol 121 mg/dL (0-200); Estimated Glomerular Filt Rate 55; Glucose 101 mg/dL (65-110); HDL Direct 47 mg/dL; LDL Cholesterol Calculated 60 mg/dL (<130); Osmolality Calculated 288 mOsm/kg (285-295); Potassium 4.2 mmol/L (3.4-5.0); Sodium 137 mmol/L (137-145); Thyroid Stimulating Hormone Reflex 1.15 u/IU/mL (0.36-3.74); Total Protein 6.2 g/dL (6.3-8.2); Triglycerides 70 mg/dL (<150)
[2024-07-30 12:49] LABS: Levetiracetam Keppra 23.5 mcg/mL (6.0-46.0)
== END 2024-07-28 09:17 | disposition home or self-care (01) ==
LOC: CHSLAB 09:18
PROVIDERS: PCP Family Medicine; Visit Provider Family Medicine
DX: E78.5 Hyperlipidemia, unspecified (principal); R56.9 Unspecified convulsions; E03.9 Hypothyroidism, unspecified
CPT/HCPCS: 36415; 80053; 80061; 80177; 84443; 85025

== ENCOUNTER 2024-08-04 15:54 | Outpatient (CLI) | payer MEDICARE, SELFPAY ==
--- NOTE | ~2024-08-04 | XR_ITS ---
XR chest 2V Ordering provider: Davina Pereyra NP History: 68 years Male with . R05.9 - Cough, unspecified . Comparison: July 25, 2024 FINDINGS: MEDIASTINUM: The cardiac silhouette is not enlarged. LUNGS: No infiltrates, effusions or pneumothorax. OTHER: No free air under the diaphragm. Degenerative changes of the spine. IMPRESSION: No acute cardiopulmonary pathology. Reviewed, dictated and finalized at location A.
--- OUTSIDE RECORDS SUMMARY | 2024-08-04 15:58 | XMS_ITS | Continuity of Care Document ---
Author Organization [facility] Address [address] [place] [address] Phone Care Team Providers Care Medical Sales Representative Name Role Phone Sanchez Brothers MD Unavailable [...] Diagnoses Date Provider Providers Copied on Encounter [facility], [address] [place] [address], [address], [place] tel:[phone] [facility] post-op right knee (chief complaint) Body mass index (BMI) 27.0-27.9, adultInfectio n of total right knee replacement, subsequent encounter 201 8 Deneen Bradford. [address] [place] [address], [id number], [place]. tel:[phone] Referring Provider: Heavenly Pak, [address] [place], [address] . tel:[phone] [facility], [address] [place] [address], [address], [place] tel:[phone] [facility] post-op right knee (chief complaint) Body mass index (BMI) 27.0-27.9, adultInfectio n of total right knee replacement, subsequent encounter 8 Deneen Bradford. [address] [place], [place], [id number], [place]. tel:[phone] Referring Provider: Heavenly Pak [address] [place], [address] . tel:[phone] [facility], [address] [place] [address], [address], [place] tel:[phone] [facility] post-op right knee (chief complaint) Infection of total right knee replacement, subsequent encounterPres ence of right artificial knee joint 8 Georgiana Johnson. [address] [place], [place], [id number], [place]. tel:[phone] Referring Provider: Heavenly Pak [address] [place], [address] . tel:[phone] [facility], [address] [place] [address], [address], [place] tel:[phone] [facility] post-op right knee (chief complaint) Body mass index (BMI) 27.0-27.9, adultInfect/i nflm reaction due to internal r knee prosth, init 8 Deneen Bradford. [address] [place], [place], [id number], [place]. tel:[phone] Referring Provider: Heavenly Pak [address] [place], [address] . tel:[phone] [facility], [address] [place] [address], [address], [place] tel:[phone] [facility] [place] No Information 0 8 Deneen Bradford. [address] [place], [place], [id number], [place]. tel:[phone] Referring Provider: Heavenly Pak [address] [place], [address] . tel:[phone] [facility], [address] [place] [address], [address], [place] tel:[phone] [facility] post-op right knee (chief complaint) post-op right knee (chief complaint) Aftercare following right knee joint replacement surgeryPresen ce of right artificial knee joint Feb-0 8 Deneen Bradford. [address] [place], [place], [id number], [place]. tel:[phone] [facility], [address] [place] [address], [address], [place] tel:[phone] [facility] post-op right knee (chief complaint) Aftercare following right knee joint replacement surgeryPresen ce of right artificial knee joint Feb-0 - 8 Deneen Bradford. [address] [place], [place], [id number], [place]. tel:[phone] [facility], [address] [place] [address], [address], [place] tel:[phone] [facility] post-op right knee (chief complaint) Aftercare following right knee joint replacement surgeryPresen ce of right artificial knee jointBody mass index (BMI) 27.0-27.9, adult 8 Deneen Bradford. [address] [place], [place], [id number], [place]. tel:[phone] [facility], [address] [place] [address], [address], [place] tel:[phone] [facility] post-op right knee (chief complaint) Aftercare following right knee joint replacement surgeryPresen ce of right artificial knee joint 8 Deneen Bradford. [address] [place], [place], [id number], [place]. tel:[phone] [facility], [address] [place] [address], [address], [place] tel:[phone] [facility] No Information 8 Deneen Swain. [address], [address], [place], [place], [id number], [place]. tel:[phone] [facility], [address] [place] [address], [address], [place] tel:[phone] [facility] No Information 8 Deneen Bradford. [address] [place], [place], [id number], [place]. tel:[phone] [facility], [address] [place] [address], [address], [place] tel:[phone] [facility] No Information 8 Deneen Bradford. [address] [place], [place], [id number], [place]. 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 [address] [place], [place], [id number], [place]. tel:[phone] Referring Provider: Sanchez Cruz, [address] [place] [address] A, [place], [address] . tel:[phone] OFFICE/OUTPA TIENT VISIT, EST [facility], [address] [place] [address], [address], [place] tel:[phone] [facility] right knee pain (chief complaint) Acute pain of right knee 7 Rogelio Lopez. [address] [place] [address], [id number], [place]. tel:[phone] Referring Provider: Sanchez Cruz [address] [facility] [place], [address] . tel:[phone] OFFICE/OUTPA TIENT VISIT, EST [facility], [address] [place], [address], [place] tel:[phone] [facility] right knee pain (chief complaint) Acute pain of right knee 9201 7 Rappe John. [address] [place], [place], [id number], [place]. tel:[phone] Referring Provider: Florencia Riddle [facility] [address], [place], [address] . tel:[phone] [facility], [address] [place] [address], [address], [place] tel:[phone] [facility] post-op right knee (chief complaint) Closed displaced bicondylar fracture of right tibia with routine healing July- 8-201 7 Rappe John. [address] [place], [place], [id number], [place]. tel:[phone] Referring Provider: Florencia Riddle [facility] [address], [place], [address] . tel:[phone] [facility], [address] [place] [address], [address], [place] tel:[phone] [facility] post-op right knee (chief complaint) Closed displaced bicondylar fracture of right tibia with routine healing May-2 7-201 7 Rappe John. [address] [place], [place], [id number], [place]. tel:[phone] Referring Provider: Shannan Riddle3 [facility] [address], [place], [address] . tel:[phone] [facility], [address] [place] [address], [address], [place] tel:[phone] [facility] post-op right knee (chief complaint) Closed displaced bicondylar fracture of right tibia with routine healing May-1 3-201 7 Rappe John. [address] [place], [place], [id number], [place]. tel:[phone] Referring Provider: Sanchez Cruz, Florencia [facility] [address], [place], [address] . tel:[phone] [facility], [address] [place], [address], [place] tel:[phone] [facility] No Information 0 7 Rappe John. [address] [place], [place], [id number], [place]. tel:[phone] OFFICE/OUTPA TIENT VISIT, [facility], [address] [place], [address], [place] tel:[phone] [facility] right knee pain (chief complaint) Fracture of right tibial plateau, closed, initial encounterRigh t calf pain 0 7 Rappe John. [address] [place], [place], [id number], [place]. tel:[phone] Referring Provider: Florencia Riddle [facility] [address], [place], [address] . tel:[phone] OFFICE/OUTPA TIENT VISIT, [facility], [address] [place], [address], [place] tel:[phone] [facility] right knee pain (chief complaint) Acute pain of right knee 7 Rappe John. [address] [place], [place], [id number], [place]. tel:[phone] Referring Provider: Florencia Riddle [facility] [address], [place], [address] . tel:[phone] [facility], [address] [place], [address], [place] tel:[phone] [facility] No Information 2 Deneen Bradford. [address] [place], [place], [id number], . tel:[phone] [facility], [address] [place] [address], [facility]ly [facility], tel:[phone] [facility] No Information 2 Deneen Bradford. [address] [place], [place], [id number], . tel:[phone] [facility], [address] [place] [address], [facility], tel:[phone] [facility] No Information 2 Deneen Bradford. [address] [place], [place], [address] [place] [address], . tel:[phone] OFFICE/OUTPA TIENT VISIT, [facility], [address] [place] [address], [facility], tel:[phone] [facility] No Information 2 Deneen Bradford. [address] [place], [place], [id number], . tel:[phone] Family History Family Member Type Diagnosis Age At Onset Problem (finding) Family history of strok e Problem (finding) Family history of Heart disease Problem (finding) Family history of Cance r, unknown Payers Payer name Insurance type Covered democrat ID Tino hanley(s) [employer] Gold Choice Medicare MB [id number] Social History Type Description Quantity Date Captured [...] x-ray. Patient states he was seen at [facility] and they done x-rays there. Functional Status Date Functional Assessmen t No Information Instructions Date Instruction Additional Infor mation Advance activity as tolerated Discussed post op care/precautio ns Elevate as needed Follow exercise program Ice as needed Progress until full ROM Progress until full strength Lifestyle education regarding di et Related to Body mass index (BMI) 27.0-27.9, adult continue physical therapy Ice as needed Progress until full ROM Progress until full strength Advance activity as tolerated Discussed wound care Discussed post op care/precautio ns Elevate as needed Follow exercise program Lifestyle education regarding di et Related to Body mass index (BMI) 27.0-27.9, adult Elevate as needed Limit activity observe Lifestyle education regarding di et Related to Body mass index (BMI) 27.0-27.9, adult Elevate as needed Discussed post op care/precautio ns Discussed wound care Ice as needed Limit activity Progress until full ROM Progress until full strength schedule physical therapy Advance activity as tolerated Discussed wound care Discussed post op care/precautio ns Elevate as needed Follow exercise program Advance activity as tolerated Discussed wound care [...] until full strength continue physical therapy Discussed post op care/precautio ns Follow exercise program Progress until full ROM Progress until full strength Ice as needed Progress until full ROM Progress until full strength Discussed wound care Discussed post op care/precautio ns Elevate as needed Follow exercise program Progress until full strength Progress until full ROM Ice as needed Follow exercise program Discussed wound care Discussed post op care/precautio ns Elevate as needed Assessments Type Assessment Date assessment Body mass index (BMI) 27.0-27.9, adult assessment Infection of total r ight knee replacement, subsequent encounter Patient Care Teams Name Effective Dates (start - stop) Status Members No Information
--- OUTSIDE RECORDS SUMMARY | 2024-08-04 15:58 | XMS_ITS | Continuity of Care Document ---
Author Organization [facility] Address [address] [place] [address] Phone Care Team Providers Care Youth Program Director Name Role Phone Kibmerley Reno, Martin Unavailable Unavailable Advance Directives Directive Yes / No Effective Date File Name No Information Encounters Encounter Description Practice Location Reason(s) For Visit Diagnoses Date Provider Providers Copied on Encounter [facility], [address] [place], [id number] tel:[phone] No Information Kimberley Salazar. [address] [place], [address]. tel:[phone] Family History Family Member Type Diagnosis Age [...]
== END 2024-08-04 15:55 | disposition home or self-care (01) ==
LOC: CHSIMG 15:57
PROVIDERS: PCP Nurse Practitioner Family; Visit Provider Nurse Practitioner Family
DX: R05.9 Cough, unspecified (principal)
CPT/HCPCS: 71046

== ENCOUNTER 2024-09-05 08:24 | Emergency (ER) | payer MEDICARE, SELFPAY ==
--- NOTE | ~2024-09-05 | XR_ITS ---
AP and oblique views of the left ribs, and PA and lateral chest radiographs Clinical History: Pain Findings: No rib fracture is seen. Osseous alignment is anatomic. Lungs are clear, without focal cons olidation or pleural effusion. Cardiomediastinal contour is within normal limits. Soft tissues are un remarkable. Impression: No rib fracture is seen. Clear lungs. Reviewed, dictated and finalized at location . Impression: No rib fracture is seen. Clear lungs.
[2024-09-05 08:24] VITALS: BP 205/99; PULSE 57; RESP 17; TEMP 36.6
--- NOTE | 2024-09-05 08:28 | ED_ITS ---
HPI - General Adult General Chief complaint: Fall Stated complaint: rib pain Time Seen by Provider: 09/05/24 08:26 History of Present Illness HPI narrative: Luciano is a 68M with a PMH of bladder cancer, CAD, seizure disorder, BPH and HTN that presented to the ED with rib pain. It started 4 days ago after he fell backwards onto his ribs while gardening. Related Data Home Medications ?Medication ?Instructions ?Recorded ?Confirmed ?Last Taken ?Type aspirin 81 mg capsule 81 mg PO DAILY 07/25/24 08/04/24 Unknown History clotrimazole-betamethasone 1 1 applic topical BID 07/25/24 08/04/24 Unknown History %-0.05 % topical cream cyanocobalamin (vitamin B-12) 50 50 mcg PO DAILY 07/25/24 08/04/24 Unknown History mcg tablet (Vitamin B-12) Allergies Allergy/AdvReac Type Severity Reaction Status Date / Time No Known Allergies Allergy Verified 09/05/24 08:31 Review of Systems 2 Review of Systems: All systems reviewed & are unremarkable except as noted in HPI and below [facility] Past Medical History Medical History Seizure STEMI (ST elevation myocardial infarction) HTN (hypertension) Social History Social History Smoking status: Former smoker Tobacco type: cigarettes Alcohol intake: former Substance use type: former substance user and marijuana Do You Feel Safe in your Home?: Yes Lack of Transportation: No Lack of Food: Never True Current Housing: I Have Housing Concerned About Future Housing: No Difficulty Paying Gas/Electric Bills: No Difficulty Paying for Meds: No Currently Unemployed: No Education: Never Attended/Kindergarten Only Difficulty w/ Childcare or Family Care: No Living arrangements: with family Occupation/Education: unemployed Gender identity (if verbalized by the patient): Male Spiritual care concerns: No Agree to blood products: No Exam 2 Const: General: cooperative, healthy appearing, comfortable, no acute distress, well developed, alert, awake and Physically active O rientation/consciousness: oriented to person, oriented to place and oriented to time HENMT: Head: normal to inspection, normocephalic and atraumatic Ears: h earing grossly normal bilaterally and external ears normal Face/Nose/Sinus: N ormal external nose present Eyes: General: appearance normal, both eyes and all related structures P eriorbital: periorbital findings normal Sclera: sclerae normal Pupils: E qual, round and reactive pupils present Neck: Neck: normal visual inspection Chest: Chest palpation & inspection: normal inspection of the chest Resp: Effort & Inspection: normal respiratory effort, able to speak in complete sentences and no respiratory distress Auscultation: clear to auscultation bilaterally Cardio: Jugular venous distension: no JVD Rate: regular rate Rhythm: r egular rhythm Skin: General skin exam: normal color and no rashes or lesions noted Neuro: General: oriented to person, oriented to place and oriented to time Cranial nerves: Yes Equal, round and reactive pupils present Extrem: General: normal to inspection Course Course Emergency Course: Ordered morphine, EKG, labs and CXR. He declined pain meds. EKG showed sinus bradycardia with a rate of 47, no ST elevation/depression AP and oblique views of the left ribs, and PA and lateral chest radiographs Clinical History: Pain Findings: No rib fracture is seen. Osseous alignment is anatomic. Lungs are clear, without focal consolidation or pleural effusion. Cardiomediastinal contour is within normal limits. Soft tissues are unremarkable. Impression: No rib fracture is seen. Clear lungs. Vital Signs Vital signs: Vital Signs Temperature 97.8 F 09/05/24 08:24 Pulse Rate 57 L 09/05/24 08:24 Respiratory Rate 09/05/24 08:24 Blood Pressure 205/99 H 09/05/24 08:24 Temperature 97.8 F 09/05/24 08:24 Pulse Rate 57 L 09/05/24 08:24 Respiratory Rate 09/05/24 08:24 Blood Pressure 205/99 H 09/05/24 08:24 Pulse Oximetry 100 09/05/24 08:35 Oxygen Delivery Room Air 09/05/24 08:35 Medical Decision Making Vital Signs Vital Signs: Vital Signs Temperature 97.8 F 09/05/24 08:24 Pulse Rate 57 L 09/05/24 08:24 Respiratory Rate 09/05/24 08:24 Blood Pressure 205/99 H 09/05/24 08:24 Temperature 97.8 F 09/05/24 08:24 Pulse Rate 57 L 09/05/24 08:24 Respiratory Rate 09/05/24 08:24 Blood Pressure 205/99 H 09/05/24 08:24 Pulse Oximetry 100 09/05/24 08:35 Oxygen Delivery Room Air 09/05/24 08:35 Lab Data 09/05/24 08:38 09/05/24 08:38 Labs: Lab Results 09/05/24 Range/Units 08:38 WBC 6.6 (4.8-10.8) K/mm3 RBC 4.63 L (4.70-6.10) M/mm3 Hgb 12.8 (12.4-15.3) g/dL Hct 40.0 (37.0-46.0) % MCV 86.4 (78.0-102.0) fL MCH 27.6 (27.0-31.0) pg MCHC 32.0 (32-36) g/dL RDW 17.5 H (11.6-14.4) % Plt Count 271 (150-420) K/mm3 MPV 10.0 (8.7-11.0) fl Immature Gran % (Auto) 0.3 H (0.0-0.0) % Neut % (Auto) 61.0 (50.0-70.0) % Lymph % (Auto) 24.6 (18.0-42.0) % [place] % (Auto) 6.6 (2.0-11.0) % Eos % (Auto) 6.3 H (1.0-6.0) % Baso % (Auto) 1.2 H (0.0-1.0) % Lymph # (Auto) 1.63 (1.10-4.50) K/mm3 [place] # (Auto) 0.44 (0.10-0.90) K/mm3 Eos # (Auto) 0.42 (0.02-0.50) K/mm3 Baso # (Auto) 0.08 (0.00-0.10) K/mm3 Abs Immat Gran (auto) 0.02 H (0.00-0.00) K/mm3 Absolute Neuts (auto) 4.03 (1.70-7.20) K/mm3 Absolute Nucleated RBC 0.00 (0.00-0.00) K/mm3 Nucleated RBC % 0.0 (0-0.0) % PT 10.7 (9.50-12.1) Seconds INR 1.0 Sodium 135 L (137-145) mmol/L Potassium 4.8 (3.4-5.0) mmol/L Chloride 108 H (98-107) mmol/L Carbon Dioxide 18 L (22-30) mmol/L Anion Gap 9 (4-12) mmol/L BUN 18 (9-20) mg/dL Creatinine 1.23 (0.7-1.3) mg/dL Estim Creat Clear Calc 50 ml/min Estimated GFR 58 L (59 - ) Glucose 92 (65-110) mg/dL Calculated Osmolality 281 L (285-295) mOsm/kg Calcium 9.6 (8.4-10.2) mg/dL Total Bilirubin 0.8 (0.2-1.3) mg/dL AST 29 (17-59) U/L ALT 15 (6-50) U/L Alkaline Phosphatase 80 (38-126) U/L Troponin I 0.028 (0.000-0.034) ng/mL NT-Pro-B Natriuret Pep 832 H (19.9-100) pg/mL Total Protein 7.8 (6.3-8.2) g/dL Albumin 4.7 (3.5-5.1) g/dL Discharge Plan Discharge Clinical Impression: Contusion of rib Patient Disposition: Home Condition: Stable Instructions: Rib Contusion (ED) Patient Language: Sinhala Prescriptions: No Action amlodipine 10 mg tablet 10 mg PO ONCE Qty: 90 3RF carvedilol 6.25 mg tablet 6.25 mg PO BID Qty: 180 3RF Rx Instructions: must administer with a meal/food clopidogrel 75 mg tablet 75 mg PO QAM 30 Days Qty: 90 3RF duloxetine 30 mg capsule,delayed release(DR/EC) 30 mg PO BID Qty: 180 3RF isosorbide mononitrate 30 mg tablet extended release 24 hr 30 mg PO DAILY Qty: 90 3RF levetiracetam 500 mg tablet 500 mg PO BID Qty: 180 3RF losartan [Cozaar] 25 mg tablet 25 mg PO DAILY Qty: 90 3RF pantoprazole 40 mg tablet,delayed release (DR/EC) 40 mg PO QAM Qty: 90 3RF primidone 50 mg tablet 50 mg PO HS Qty: 90 3RF rosuvastatin 20 mg tablet 20 mg PO DAILY Qty: 90 3RF tamsulosin 0.4 mg capsule 0.4 mg PO DAILY Qty: 90 3RF ipratropium-albuterol 0.5 mg-3 mg(2.5 mg base)/3 mL solution for nebulization 3 ml inhalation ONCE Qty: 1 0RF albuterol sulfate 2.5 mg /3 mL (0.083 %) solution for nebulization 2.5 mg inhalation ONCE Qty: 3 0RF umeclidinium-vilanterol [Anoro Ellipta] 62.5-25 mcg/actuation blister with device 1 inh inhalation DAILY Qty: 60 2RF nitroglycerin 0.3 mg tablet, sublingual 0.3 mg sublingual Q5M PRN (Reason: chest pain) Qty: 30 2RF Rx Instructions: do not exceed 3 doses per episode azithromycin [Zithromax Z-Rahul] 250 mg tablet See Rx Instructions PO .COMPLEX Qty: 6 0RF Rx Instructions: take 500 mg today (day 1), then 250 mg for 4 days (days 2-5) PO benzonatate 200 mg capsule 200 mg PO BID PRN (Reason: cough) Qty: 20 0RF fluticasone propionate [Allergy Relief (fluticasone)] 50 mcg/actuation spray,suspension 1 spray intranasal DAILY Qty: 16 0RF Rx Instructions: administer into each nostril aspirin 81 mg capsule 81 mg PO DAILY Vitamin B-12 50 mcg tablet 50 mcg PO DAILY clotrimazole-betamethasone 1-0.05 % cream 1 applic topical BID Follow-up/Referrals: Jerry Tai DO [Primary Care Provider] -
--- NOTE | 2024-09-05 08:28 | ECG_ITS ---
Test Date: 2024-09-05 08:45:59 Measurements Intervals Martinez Rate: 47 P: 76 OK: 171 QRS: 8 QRSD: 76 T: 83 QT: 446 QTc: 397 Interpretive Statements SINUS BRADYCARDIA WITH SINUS ARRHYTHMIA BORDERLINE ST-T WAVE ABNORMALITY- HIGH LATERAL LEADS BASELINE ARTIFACT- I, II, III, AVR, AVL, AVF, V1-V6 ABNORMAL ECG Compared to ECG 07/26/2024 09:10:33 HEART RATE HAS DECREASED Electronically Signed On 09-05-2024 12:41:39 CDT by Yovani Fitzgerald D.O.
[2024-09-05 08:35] VITALS: O2SAT 100
[2024-09-05 08:43] LABS: Basophils Absolute Auto 0.08 K/mm3 (0.00-0.10); Basophils Percent Auto 1.2 % (0.0-1.0); Eosinophils Absolute Auto 0.42 K/mm3 (0.02-0.50); Eosinophils Percent Auto 6.3 % (1.0-6.0); Hemoglobin 12.8 g/dL (12.4-15.3); Immature Granulocyte Absolute 0.02 K/mm3 (0.00-0.00); Immature Granulocyte Percent A 0.3 % (0.0-0.0); Lymphocytes Absolute Auto 1.63 K/mm3 (1.10-4.50); Lymphocytes Percent Auto 24.6 % (18.0-42.0); Mean Corpuscular Hemoglobin 27.6 pg (27.0-31.0); Mean Corpuscular Volume 86.4 fL (78.0-102.0); Monocytes Absolute Auto 0.44 K/mm3 (0.10-0.90); Monocytes Percent Auto 6.6 % (2.0-11.0); Neutrophils Absolute Auto 4.03 K/mm3 (1.70-7.20); Platelet Count Result 271 K/mm3 (150-420); Red Blood Count 4.63 M/mm3 (4.70-6.10); Red Cell Distribution Width 17.5 % (11.6-14.4); White Blood Count 6.6 K/mm3 (4.8-10.8)
[2024-09-05 08:54] LABS: Blood Urea Nitrogen 18 mg/dL (9-20); Carbon Dioxide 18 mmol/L (22-30); Glucose 92 mg/dL (65-110)
[2024-09-05 08:55] LABS: Prothrombin Time 10.7 Seconds (9.50-12.1)
[2024-09-05 09:00] VITALS: BP 172/81; PULSE 45; RESP 17; O2SAT 100
[2024-09-05 09:03] LABS: Alanine Aminotransferase 15 U/L (6-50); Anion Gap 9 mmol/L (4-12); Aspartate Amino Transferase 29 U/L (17-59); Bilirubin,Total 0.8 mg/dL (0.2-1.3); Calcium 9.6 mg/dL (8.4-10.2); Chloride 108 mmol/L (98-107); Estimated CRCL calculation 50 ml/min; Estimated Glomerular Filt Rate 58; Osmolality Calculated 281 mOsm/kg (285-295); Potassium 4.8 mmol/L (3.4-5.0); Sodium 135 mmol/L (137-145)
[2024-09-05 09:04] LABS: Albumin Level 4.7 g/dL (3.5-5.1); Alkaline Phosphatase 80 U/L (38-126); Total Protein 7.8 g/dL (6.3-8.2)
[2024-09-05 09:06] LABS: NT Pro B Type Natriuretic Pept 832 pg/mL (19.9-100); Troponin I 0.028 ng/mL (0.000-0.034)
--- NOTE | 2024-09-05 09:15 | PC.NURSE ---
patient being taken down to Radiology
--- NOTE | 2024-09-05 09:26 | PC.NURSE ---
patient back in room from radiology
[2024-09-05 09:30] VITALS: BP 181/82; PULSE 44; RESP 18; O2SAT 100
[2024-09-05 10:00] VITALS: BP 177/90; PULSE 48; RESP 17; O2SAT 99
[2024-09-05 10:15] VITALS: BP 177/90; PULSE 48; RESP 17; TEMP 36.6; O2SAT 99
== END 2024-09-05 10:15 | disposition home or self-care (01) ==
PROVIDERS: Emergency Provider Family Medicine; PCP Family Medicine
DX: S20.219A Contusion of unspecified front wall of thorax, initial encounter (principal); I25.10 Atherosclerotic heart disease of native coronary artery without angina pectoris; I25.2 Old myocardial infarction; Z85.51 Personal history of malignant neoplasm of bladder; Z87.891 Personal history of nicotine dependence; W19.XXXA Unspecified fall, initial encounter
CPT/HCPCS: 36415; 71046; 71100; 80053; 83880; 84484; 85025; 85610; 93005; 96372; 99284

== ENCOUNTER 2024-09-14 12:24 | Outpatient (CLI) | payer MEDICARE, SELFPAY ==
--- OUTSIDE RECORDS SUMMARY | 2024-09-14 12:28 | XMS_ITS | Continuity of Care Document ---
Author Organization [facility] Address [address] [place] [address] Phone Care Team Providers Care Chemist Name Role Phone Kimberley Reno, Martin Unavailable Unavailable Advance Directives Directive Yes / No Effective Date File Name No Information Encounters Encounter Description Practice Location Reason(s) For Visit Diagnoses Date Provider Providers Copied on Encounter [facility], [address] [place], [id number] tel:[phone] No Information Kimberley Salazar. [address] [place], [address]. tel:[phone] Family History Family Member Type Diagnosis Age At Onset No Information Payers Payer name Insurance type Covered alliance party ID Authoriza tion(s) No Information Social History Type Description Quantity Date Captured Comments Sex Male Smoking Status No Information Sexual Orientation Straight or heterosexual History Of Present Illness Encounter Date Complaint History Of Prese nt Illness No Information Functional Status Date Functional Assessmen t No Information Instructions Date Instruction Additional Infor mation No Information Assessments Type Assessment Date No Information Patient Care Teams Name Effective Dates (start - stop) Status Members No Information
--- OUTSIDE RECORDS SUMMARY | 2024-09-14 12:28 | XMS_ITS | Continuity of Care Document ---
Author Organization [facility] Address [address] [place] [address] Phone Care Team Providers Care Wheel Installer Name Role Phone Sanchez Brothers MD Unavailable [...] Diagnoses Date Provider Providers Copied on Encounter [facility], [address] [place] [address], [address], [place] tel:[phone] [facility] post-op right knee (chief complaint) Body mass index (BMI) 27.0-27.9, adultInfectio n of total right knee replacement, subsequent encounter 201 8 Deneen Bradford. [address] [place] [address], [id number], [place]. tel:[phone] Referring Provider: Heavenly Pak, [address] [place], [address] . tel:[phone] [facility], [address] [place] [address], [address], [place] tel:[phone] [facility] post-op right knee (chief complaint) Body mass index (BMI) 27.0-27.9, adultInfectio n of total right knee replacement, subsequent encounter 8 Deneen Bradford. [address], [place], [id number], [place]. tel:[phone] Referring Provider: Heavenly Pak [address] [place], [address] . tel:[phone] [facility], [address] [place] [address], [address], [place] tel:[phone] [facility] post-op right knee (chief complaint) Infection of total right knee replacement, subsequent encounterPres ence of right artificial knee joint 8 Georgiana Johnson. [address], [place], [id number], [place]. tel:[phone] Referring Provider: Heavenly Pak [address] [place], [address] . tel:[phone] [facility], [address] [place] [address], [address], [place] tel:[phone] [facility] post-op right knee (chief complaint) Body mass index (BMI) 27.0-27.9, adultInfect/i nflm reaction due to internal r knee prosth, init 8 Deneen Bradford. [address], [place], [id number], [place]. tel:[phone] Referring Provider: Heavenly Pak [address] [place], [address] . tel:[phone] [facility], [address] [place] [address], [address], [place] tel:[phone] [facility] [place] No Information 0 8 Deneen Bradford. [address], [place], [id number], [place]. tel:[phone] Referring Provider: Heavenly Pak [address] [place], [address] . tel:[phone] [facility], [address] [place] [address], [address], [place] tel:[phone] [facility] post-op right knee (chief complaint) post-op right knee (chief complaint) Aftercare following right knee joint replacement surgeryPresen ce of right artificial knee joint Feb-0 8 Deneen Bradford. [address], [place], [id number], [place]. tel:[phone] [facility], [address] [place] [address], [address], [place] tel:[phone] [facility] post-op right knee (chief complaint) Aftercare following right knee joint replacement surgeryPresen ce of right artificial knee joint Feb-0 - 8 Deneen Bradford. [address], [place], [id number], [place]. tel:[phone] [facility], [address] [place] [address], [address], [place] tel:[phone] [facility] post-op right knee (chief complaint) Aftercare following right knee joint replacement surgeryPresen ce of right artificial knee jointBody mass index (BMI) 27.0-27.9, adult 8 Deneen Bradford. [address], [place], [id number], [place]. tel:[phone] [facility], [address] [place] [address], [address], [place] tel:[phone] [facility] post-op right knee (chief complaint) Aftercare following right knee joint replacement surgeryPresen ce of right artificial knee joint 8 Denene Bradford. [address], [place], [id number], [place]. tel:[phone] [facility], [address] [place] [address], [address], [place] tel:[phone] [facility] No Information 8 Deneen Swain. [address], [address], [place], [place], [id number], [place]. tel:[phone] [facility], [address] [place] [address], [address], [place] tel:[phone] [facility] No Information 8 Deneen Bradford. [address], [place], [id number], [place]. tel:[phone] [facility], [address] [place] [address], [address], [place] tel:[phone] [facility] No Information 8 Deneen Bradford. [address], [place], [id number], [place]. 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 [address], [place], [id number], [place]. tel:[phone] Referring Provider: Sanchez Cruz, [address] [place] [address] A, [place], [address] . tel:[phone] OFFICE/OUTPA TIENT VISIT, EST [facility], [address] [place] [address], [address], [place] tel:[phone] [facility] right knee pain (chief complaint) Acute pain of right knee 7 Rogelio Lopez. [address] [place] [address], [id number], [place]. tel:[phone] Referring Provider: Sanchez Cruz [address] [facility] [place], [address] . tel:[phone] OFFICE/OUTPA TIENT VISIT, EST [facility], [address] [place], [address], [place] tel:[phone] [facility] right knee pain (chief complaint) Acute pain of right knee 9201 7 Rappe John. [address] [place], [place], [id number], [place]. tel:[phone] Referring Provider: Florencia Riddle [facility] [address], [place], [address] . tel:[phone] [facility], [address] [place] [address], [address], [place] tel:[phone] [facility] post-op right knee (chief complaint) Closed displaced bicondylar fracture of right tibia with routine healing July- 8-201 7 Rappe John. [address] [place], [place], [id number], [place]. tel:[phone] Referring Provider: Florencia Riddle [facility] [address], [place], [address] . tel:[phone] [facility], [address] [place] [address], [address], [place] tel:[phone] [facility] post-op right knee (chief complaint) Closed displaced bicondylar fracture of right tibia with routine healing May-2 7-201 7 Rappe John. [address], [place], [id number], [place]. tel:[phone] Referring Provider: Shannan Riddle3 [facility] [address], [place], [address] . tel:[phone] [facility], [address] [place] [address], [address], [place] tel:[phone] [facility] post-op right knee (chief complaint) Closed displaced bicondylar fracture of right tibia with routine healing May-1 3-201 7 Rappe John. [address], [place], [id number], [place]. tel:[phone] Referring Provider: Sanchez Cruz, Florencia [facility] [address], [place], [address] . tel:[phone] [facility], [address] [place], [address], [place] tel:[phone] [facility] No Information 0 7 Rappe John. [address], [place], [id number], [place]. tel:[phone] OFFICE/OUTPA TIENT VISIT, [facility], [address] [place], [address], [place] tel:[phone] [facility] right knee pain (chief complaint) Fracture of right tibial plateau, closed, initial encounterRigh t calf pain 0 7 Rappe John. [address], [place], [id number], [place]. tel:[phone] Referring Provider: Florencia Riddle [facility] [address], [place], [address] . tel:[phone] OFFICE/OUTPA TIENT VISIT, [facility], [address] [place], [address], [place] tel:[phone] [facility] right knee pain (chief complaint) Acute pain of right knee 7 Rappe John. [address], [place], [id number], [place]. tel:[phone] Referring Provider: Florencia Riddle [facility] [address], [place], [address] . tel:[phone] [facility], [address] [place], [address], [place] tel:[phone] [facility] No Information 2 Deneen Bradford. [address], [place], [id number], . tel:[phone] [facility], [address] [place] [address], [facility], tel:[phone] [facility] No Information 2 Deneen Bradford. [address], [place], [id number], . tel:[phone] [facility], [address] [place] [address], [facility], tel:[phone] [facility] No Information 2 Deneen Bradford. [address], [place], [address] [place] [address], . tel:[phone] OFFICE/OUTPA TIENT VISIT, [facility], [address] [place] [address], [facility], tel:[phone] [facility] No Information 2 Deneen Bradford. [address], [place], [id number], . tel:[phone] Family History Family Member Type Diagnosis Age At Onset Problem (finding) Family history of strok e Problem (finding) Family history of Heart disease Problem (finding) Family history of Cance r, unknown Payers Payer name Insurance type Covered democrat ID Tino hanley(s) [employer] Gold [employer] Medicare MB [id number] Social History Type Description Quantity Date Captured [...] x-ray. Patient states he was seen at [facility] and they done x-rays there. Functional Status Date Functional Assessmen t No Information Instructions Date Instruction Additional Infor mation Progress until full strength Progress until full ROM Ice as needed Follow exercise program Elevate as needed Discussed post op care/precautio ns Advance activity as tolerated Lifestyle education regarding di et Related to Body mass index (BMI) 27.0-27.9, adult Lifestyle education regarding di et Related to Body mass index (BMI) 27.0-27.9, adult continue physical therapy Advance activity as tolerated Discussed wound care Discussed post op care/precautio ns Elevate as needed Follow exercise program Ice as needed Progress until full ROM Progress until full strength Elevate as needed Limit activity Lifestyle education regarding di et Related to Body mass index (BMI) 27.0-27.9, adult Discussed wound care Discussed post op care/precautio ns Elevate as needed observe Limit activity Progress until full ROM Progress until full strength schedule physical therapy Advance activity as tolerated Discussed wound care Discussed post op care/precautio ns Elevate as needed Follow exercise program Ice as needed Discussed post op care/precautio ns Elevate as needed Follow exercise program Ice as needed Progress until full ROM Progress until full strength Advance activity as tolerated Discussed wound care Lifestyle education regarding di et Related to Body mass index (BMI) 27.0-27.9, adult Advance activity as tolerated Discussed wound care Discussed post op care/precautio ns Elevate as needed Follow exercise program Ice as needed Progress until full ROM Progress until full strength continue physical therapy Progress until full strength Progress until full ROM Follow exercise program Discussed post op care/precautio ns Progress until full strength Progress until full ROM Ice as needed Follow exercise program Elevate as needed Discussed post op care/precautio ns Discussed wound care Ice as needed Progress until full ROM [...]
--- NOTE | 2024-09-14 12:30 | ECHO_ITS ---
Patient Info Name: Luciano Rodriguez Age: 68 years : 1955 Gender: Male Ht: 65 in Wt: 145 lbs BSA: 1.75 m2 HR: 45 bpm BP: 150 / 100 mmHg Technical Quality: Good Exam Date: 09/14/2024 12:45 PM Patient Status: O Admit Date: 09/14/2024 Exam Type: CA echo doppler color flow Complete two-dimensional, color flow and Doppler transthoracic echocardiogram is performed. Lead Mason Tender: Robyn Cadena Attending Provider: Yovani Fitzgerald DO Summary 1. Complete two-dimensional, color flow and Doppler transthoracic echocardiogram is performed. 2. Left ventricular chamber dimension is normal. 3. Left ventricular systolic function is normal, estimated at 55-60. 4. The left ventricular diastolic function is abnormal. 5. E/e' 10 is mildly elevated. 6. Left atrial chamber dimension is moderately enlarged. 7. There is mild aortic valve sclerosis. 8. There is mild to moderate aortic valve regurgitation. 9. There is mild to moderate mitral valve regurgitation. 10. There is mild tricuspid valve regurgitation. 11. No pulmonary hypertension, estimated pulmonary arterial systolic pressure is 28 mmHg. 12. There is mild pulmonic regurgitation. Left Ventricle E/e' 10 is mildly elevated. Left ventricular chamber dimension is normal. Left ventricular systolic function is normal, estimated at 55-60. The left ventricular diastolic function is abnormal. Right Ventricle Right ventricular chamber dimension is normal. Right ventricular systolic function is normal and with normal TAPSE 2.7 cm. Left Atria Left atrial chamber dimension is moderately enlarged. Right Atria Right atrial chamber dimension is normal. Aortic Valve The aortic valve is trileaflet. There is mild aortic valve sclerosis. There is no aortic valve stenosis. There is mild to moderate aortic valve regurgitation. Pulmonic Valve There is mild pulmonic regurgitation. Mitral Valve There is no mitral valve stenosis. There is mild to moderate mitral valve regurgitation. Tricuspid Valve There is mild tricuspid valve regurgitation. No pulmonary hypertension, estimated pulmonary arterial systolic pressure is 28 mmHg. Pericardium/Pleural There is no pericardial effusion. Inferior Vena Cava Normal inferior vena cava with >50% collapse upon inspiration consistent with normal right atrial pressure, 5 mmHg. Aorta The aortic root size at the sinus of Valsalva is normal. Left Ventricular Outflow Tract Name Value Normal LVOT 2D LVOT Diameter 2.1 cm LVOT Doppler LVOT Peak Velocity 114 cm/s LVOT Peak Gradient 5 mmHg LVOT Mean Gradient 2 mmHg LVOT VTI 26 cm LVOT VTI/AV VTI Ratio 0.9 LVOT Stroke Volume 88 ml LVOT CO 4.6 l/min LVOT CI 2.7 l/min/m2 Pulmonic Valve Name Value Normal PV Doppler PV Peak Velocity 126 cm/s PV Peak Gradient 6 mmHg PV Regurgitation Doppler IL Decel [place] 98 cm/s2 Mitral Valve Name Value Normal MV Doppler MV Peak Gradient 3 mmHg MV Mean Gradient 1 mmHg MV Area (Cont Eq VTI) 2.2 cm2 MV Regurgitation Doppler MR Peak Gradient 96 mmHg MV Diastolic Function MV E Peak Velocity 87 cm/s MV A Peak Velocity 66 cm/s MV E/A 1.3 MV Decel Time (PW) 175 ms MV Annular TDI MV E/e' (Septal) 11.7 MV E/e' (Lateral) 9.1 MV E/e' (Average) 10.4 Tricuspid Valve Name Value Normal TV Regurgitation Doppler TR Peak Velocity 238 cm/s TR Peak Gradient 23 mmHg Estimated PAP/RSVP RA Pressure 5 mmHg <=5 PA Systolic Pressure 28 mmHg <36 RV Systolic Pressure 28 mmHg <36 TV Annular TDI TV Lateral Anabela s' Velocity 11.9 cm/s >=9.5 Aortic Valve Name Value Normal AV Doppler AV Peak Velocity 135 cm/s AV Peak Gradient 7 mmHg AV Mean Gradient 3 mmHg AV VTI 28 cm AV Area (Cont Eq VTI) 3.1 cm2 >=3.0 AV Area (Cont Eq Beny) 2.9 cm2 AV DI (Beny) 0.85 AV Regurgitation 2D LVOT Area 3.4 cm2 Ventricles Name Value Normal LV Dimensions 2D/MM IVS Diastolic Thickness (2D) 0.8 cm 0.6-1.0 LVID Diastole (2D) 5.0 cm 4.2-5.8 LVIW Diastolic Thickness (2D) 0.7 cm 0.6-1.0 LVID Systole (2D) 3.5 cm 2.5-4.0 LVOT Diameter 2.1 cm LV Mass (2D Cubed) 132.41 g 88.00-224.00 LV Mass Index (2D Cubed) 76 g/m2 49-115 Relative Wall Thickness (2D) 0.30 <=0.42 LV Fractional Shortening/Ejection Fraction 2D/MM LV Fractional Shortening (2D) 30 % 25-43 LV EF (2D Teichholz) 56 % LV Diastolic Volume (4C MOD) 107 ml LV EF (4C MOD) 55 % LV Diastolic Volume (2C MOD) 113 ml LV EF (2C MOD) 62 % LV Diastolic Volume (BP MOD) 111 ml 62-150 LV Diastolic Volume Index (BP MOD) 63 ml/m2 34-74 LV Systolic Volume (BP MOD) 45 ml 21-61 LV Systolic Volume Index (BP MOD) 26 ml/m2 11-31 LV EF (BP MOD) 59 % 52-72 LV Diastolic Length (4C) 8.8 cm LV Systolic Length (4C) 7.0 cm LV Stroke Volume (4C MOD) 59 ml Atria Name Value Normal LA Dimensions LA Volume (4C A-L) 68 ml LA Volume (BP A-L) 73 ml RA Dimensions RA Systolic Major Grundy Length (4C) 5.3 cm 2.1-2.7 RA Area (4C) 16.8 cm2 <=18.0 Report Signatures
== END 2024-09-14 12:25 | disposition home or self-care (01) ==
LOC: CHSIMG 12:25
PROVIDERS: PCP Family Medicine; Visit Provider Internal Medicine Cardiovascular Disease
DX: I50.9 Heart failure, unspecified (principal); I08.3 Combined rheumatic disorders of mitral, aortic and tricuspid valves; I37.1 Nonrheumatic pulmonary valve insufficiency
CPT/HCPCS: 93306

== ENCOUNTER 2024-09-23 08:44 | Outpatient (CLI) | payer MEDICARE, SELFPAY ==
--- NOTE | ~2024-09-23 | MR_ITS ---
MRI of the brain Clinical History: Convulsions Technique: Axial and sagittal T1-weighted images were acquired. These were followed by axial T2-weigh elva, diffusion weighted, gradient, and FLAIR images. Findings: There is no acute infarct, intracranial hemorrhage or mass lesion. There is chronic infarct involving the right temporal lobe. There is mild to moderate chronic microvascular ischemic change i n the periventricular white matter. Ventricles and subarachnoid spaces are unremarkable. Orbits are unremarkable. Paranasal sinuses and m astoid air cells are clear. Major intracranial flow voids appear intact. Sagittal midline structures are intact. IMPRESSION: No acute abnormality. Chronic right temporal lobe infarct. Mild to moderate chronic microvascular ischemic changes. Reviewed, dictated and finalized at location M.
--- OUTSIDE RECORDS SUMMARY | 2024-09-23 08:48 | XMS_ITS | Continuity of Care Document ---
Author Organization [facility] Address [address] [place] [address] Phone Care Team Providers Care Mc Kay Machine Operator Name Role Phone Kimberley Reno, Martin Unavailable Unavailable Advance Directives Directive Yes / No Effective Date File Name No Information Encounters Encounter Description Practice Location Reason(s) For Visit Diagnoses Date Provider Providers Copied on Encounter [facility], [address] [place], [id number] tel:[phone] No Information Kimberley Salazar. [address] [place], [address]. tel:[phone] Family History Family Member Type Diagnosis Age At Onset No Information Payers Payer name Insurance type Covered constitution party ID Authoriza tion(s) No Information Social [...]
== END 2024-09-23 08:45 | disposition home or self-care (01) ==
PROVIDERS: PCP Family Medicine; Visit Provider Family Medicine
DX: R56.9 Unspecified convulsions (principal); Z86.73 Personal history of transient ischemic attack (TIA), and cerebral infarction without residual deficits
CPT/HCPCS: 70551